=== PATIENT | female | born 1955 | race Caucasian/White ===

== ENCOUNTER 2016-11-29 23:26 | Inpatient (IN) | payer OTHER ==
[2016-11-29] MEDS ORDERED: ONDANSETRON HCL INJ/PF 4 MG/2 ML SDV IV ONE (23:57)
[2016-11-29] MEDS ORDERED: NORMAL SALINE 1000 ML 1,000 ML IV ONE (23:57)
[2016-11-30] MEDS ORDERED: NORMAL SALINE 1000 ML 1,000 ML IV PRN (00:11)
[2016-11-30 00:36] LABS: ABSOLUTE LYMPHOCYTES (AUTO) 1.1 10^3/uL (0.5-4.7); ABSOLUTE NEUT (AUTO) 6.8 10^3/uL (1.7-8.2); BASOPHILS % (AUTO) 0.4 % (0-2); HEMATOCRIT 47.2 % (36.0-47.0); HGB HCT DIFFERENCE -2.2; LYMPHOCYTES % (AUTO) 11.9 % (13-45); MEAN CORPUSCULAR HEMOGLOBIN 28.7 pg (27.0-33.4); MEAN CORPUSCULAR HGB CONC 31.8 g/dL (32.0-36.0); MEAN CORPUSCULAR VOLUME 90 fl (80-97); MONOCYTES % (AUTO) 11.3 % (3-13); RED BLOOD COUNT 5.23 10^6/uL (3.72-5.28); RED CELL DISTRIBUTION WIDTH 13.4 % (11.5-14.0); SEGMENTED NEUTROPHILS % (AUTO) 76.4 % (42-78)
[2016-11-30 00:43] LABS: ALANINE AMINOTRANSFERASE 33 U/L (9-52); ALBUMIN 4.4 g/dL (3.5-5.0); ALKALINE PHOSPHATASE 176 U/L (38-126); ASPARTATE AMINO TRANSFERASE 20 U/L (14-36); BILIRUBIN,DIRECT 0.6 mg/dL (0.0-0.4); BILIRUBIN,TOTAL 0.8 mg/dL (0.2-1.3); BLOOD UREA NITROGEN 57 mg/dL (7-20); CALCIUM 10.4 mg/dL (8.4-10.2); CARBON DIOXIDE 29 mmol/L (22-30); CHLORIDE 83 mmol/L (98-107); CREATININE RESULT 1.28 mg/dL (0.52-1.25); TOTAL PROTEIN 8.9 g/dL (6.3-8.2)
[2016-11-30 00:51] LABS: POTASSIUM 4.5 mmol/L (3.6-5.0); SODIUM 134.4 mmol/L (137-145)
[2016-11-30 00:57] LABS: ANION GAP 22 (5-19)
[2016-11-30 01:06] LABS: GLUCOSE 641 mg/dL (75-110)
[2016-11-30] MEDS ORDERED: GLUCAGON,HUMAN RECOMB 1 MG INJ IM PRN ×3 (01:07→07:43)
[2016-11-30] MEDS ORDERED: DEXTROSE 40% GEL 15 GM TUBE PO PRN ×6 (01:07→07:43)
[2016-11-30] MEDS ORDERED: DEXTROSE 50%-WATER 25 GM/50 ML DISP.SYRIN IV PRN ×6 (01:07→07:43)
[2016-11-30] MEDS ORDERED: NORMAL SALINE 100 ML with INSULIN REGULAR, HUMAN 100 UNIT IV PRN ×2 (01:07)
[2016-11-30] MEDS ORDERED: NORMAL SALINE 1000 ML 1,000 ML IV ONE (01:34)
[2016-11-30] MEDS ORDERED: INSULIN REG, HUMAN 100 UNIT/ML 3 ML VIAL (PYX) ONE (01:34)
[2016-11-30] MEDS ORDERED: ACETAMINOPHEN 325 MG TABLET PO PRN (01:37)
[2016-11-30] MEDS ORDERED: IPRATROPIUM/ALBUTEROL 0.5-2.5 MG/3 ML AMPUL NEB PRN (01:37)
--- NOTE | 2016-11-30 01:39 | ER Document Report ---
ED General - General Chief Complaint: Nausea/Vomiting/Diarrhea Stated Complaint: VOMITING FOR THREE DAYS Time Seen by Provider: 11/30/16 00:11 Notes: There is a 61-year-old female presents with complaint of vomiting since Tuesday. No chest pain. No abdominal pain. No diarrhea. No travel outside the country. She is a diabetic. She is on metformin but has been down. No recent fevers. No other complaints at this time. - Related Data Allergies/Adverse Reactions: oxycodone Adverse Reaction (Verified 11/29/16 23:57) Hives Past Medical History - Social History Smoking Status: Unknown if Ever Smoked Chew tobacco use (# tins/day): No Frequency of alcohol use: None Drug Abuse: None Family History: Reviewed & Not Pertinent Endocrine Medical History: Reports: Hx Diabetes Mellitus Type 2 Renal/ Medical History: Denies: Hx Peritoneal Dialysis Past Surgical History: Reports: Hx Cholecystectomy - Immunizations Hx Diphtheria, Pertussis, Tetanus Vaccination: No Review of Systems - Review of Systems Notes: My Normal Review Basic REVIEW OF SYSTEMS: CONSTITUTIONAL : Denies fever, chills, or sweats. Denies recent illness. EENT: Denies eye, ear, throat, or mouth pain or symptoms. Denies nasal or sinus congestion. CARDIOVASCULAR: Denies chest pain. RESPIRATORY: Denies cough, cold, or chest congestion. Denies shortness of breath, difficulty breathing, or wheezing. GASTROINTESTINAL: Denies abdominal pain. vomiting. GENITOURINARY: Denies difficulty urinating, painful urination, burning, frequency, or blood in urine. MUSCULOSKELETAL: Denies neck or back pain or joint pain or swelling. SKIN: Denies rash or skin lesions. NEUROLOGICAL: Denies altered mental status or loss of consciousness. Denies headache. Denies weakness or paralysis or loss of use of either side. Denies problems with gait or speech. Denies sensory or motor loss. ALL OTHER SYSTEMS REVIEWED AND NEGATIVE. Physical Exam - Vital signs Vitals: Temp Pulse Resp BP Pulse Ox 97.8 F 126 H 14 90/59 L 97 11/29/16 23:54 11/29/16 23:54 11/29/16 23:54 11/29/16 23:54 11/29/16 23:54 - Notes Notes: General Appearance: Well nourished, alert, cooperative, no acute distress, no obvious discomfort. Vitals: reviewed, See vital signs table. Head: no swelling or tenderness to the head Eyes: PERRL, EOMI, Conjuctiva clear Mouth: dry mucous membranes Neck: Supple, no neck tenderness, No thyromegaly Lungs: No wheezing, No rales, No rhonci, No accessory muscle use, good air exchange bilaterally. Heart: tachycardicl rate, Regular rythm, No murmur, no rub Abdomen: Normal BS, soft, No rigidity, No abdominal tenderness, No guarding, no rebound, no abdominal masses, no organomegaly Extremities: strength 5/5 in all extremities, good pulses in all extremities, no swelling or tenderness in the extremities, no edema. Skin: warm, dry, appropriate color, no rash Neuro: speech clear, oriented x 3, normal affect, responds appropriately to questions. Course - Vital Signs Vital signs: Temp Pulse Resp BP Pulse Ox 97.8 F 126 H 16 110/60 99 11/29/16 23:54 11/29/16 23:54 11/30/16 04:57 11/30/16 07:01 11/30/16 07:01 - Laboratory Result Diagrams: 11/30/16 06:12 11/30/16 06:12 Laboratory results interpreted by me: 11/30/16 11/30/16 11/30/16 00:13 00:13 00:13 Hct 47.2 H MCHC 31.8 L Lymphocytes % 11.9 L Sodium 134.4 L Chloride 83 L Anion Gap 22 H BUN 57 H Creatinine 1.28 H Est GFR ( Amer) 52 L Est GFR (Non-Af Amer) 43 L Glucose 641 H* Calcium 10.4 H Magnesium 2.4 H Direct Bilirubin 0.6 H Alkaline Phosphatase 176 H Total Protein 8.9 H - EKG Interpretation by Me Additional EKG results interpreted by me: 11/30/16 01:43 Is reviewed and interpreted by me. EKG shows sinus tachycardia with rate of [address] segment elevation or depression. No ischemic T-wave inversions. ND interval, QRS duration, QTc intervals are within normal range. No old EKG available for comparison. - Transfer of Care Notes: 11/30/16 07:21 Patient's hypotension did improve with IV fluids. She is hyperglycemic and does have a slight gap. She has not very acidotic according to her chemistry panel. Due to her severe dehydration, hyperglycemia, and initial hypotension when she arrived I think it is appropriate to the patient for further rehydration and to get her blood sugars under control and to make sure her vomiting has not returned. Patient is still a bit tachycardic. Initially her heart rate was in the 130s. Now heart rate is in the 110s. I did discuss the case with hospitalist and he agrees to admit the patient. Dictation of this chart was performed using voice recognition software; therefore, there may be some unintended grammatical errors. Discharge - Discharge Clinical Impression: Hyperglycemia, Dehydration Vomiting Qualifiers: Vomiting type: unspecified Vomiting Intractability: unspecified Nausea presence : with nausea Qualified Code(s): R11.2 - Nausea with vomiting, unspecified Disposition: ADMITTED INPATIENT Admitting Provider: Hospitalist Unit Admitted: [facility]
[2016-11-30] MEDS ORDERED: NORMAL SALINE 1000 ML 1,000 ML IV SCH (01:45)
[2016-11-30 02:22] LABS: ANION GAP 18 (5-19); BLOOD UREA NITROGEN 56 mg/dL (7-20); CALCIUM 9.2 mg/dL (8.4-10.2); CARBON DIOXIDE 29 mmol/L (22-30); CHLORIDE 91 mmol/L (98-107); CREATINE KINASE 30 U/L (30-135); CREATININE RESULT 1.08 mg/dL (0.52-1.25); POTASSIUM 4.3 mmol/L (3.6-5.0); SODIUM 138.4 mmol/L (137-145)
[2016-11-30 02:34] LABS: GLUCOSE 588 mg/dL (75-110)
[2016-11-30 02:39] LABS: TROPONIN I < 0.012 ng/mL
[2016-11-30] MEDS ORDERED: ONDANSETRON HCL INJ/PF 4 MG/2 ML SDV IV ONE (03:52)
--- NOTE | 2016-11-30 04:59 | PDOC H&P ---
History of Present Illness Admission Date/PCP: 11/30/16 01:37 Patient complains of: Nausea and vomiting History of Present Illness: TERRANCE KLEIN is a 61 year old female a past medical history of insulin-dependent diabetes who is had several weeks without insulin use and over the last few days has had excessive thirst, urination, uncontrolled hyperglycemia nausea and vomiting over the last 12 hours prompting him to seek evaluation emergency room where she is found to be in diabetic ketoacidosis. She started on IV fluids IV insulin and referred to the hospitalist for admission. She denies chest pain shortness of breath or palpitations. Past Medical History Endocrine Medical History: Reports: Diabetes Mellitus Type 2 Past Surgical History Past Surgical History: Reports: Cholecystectomy Social History Information Source: Patient Smoking Status: Former Smoker Frequency of Alcohol Use: None Drugs: None Family History Family History: DM Parental Family History Reviewed: Yes Children Family History Reviewed: Yes Sibling(s) Family History Reviewed.: Yes Medication/Allergy Allergies/Adverse Reactions: oxycodone Adverse Reaction (Verified 11/29/16 23:57) Bryson Review of Systems Constitutional: PRESENT: as per HPI, fatigue, weakness. ABSENT: chills, fever(s ), headache(s), night sweats Eyes: ABSENT: visual disturbances Ears: ABSENT: hearing changes Cardiovascular: ABSENT: chest pain, dyspnea on exertion, edema, orthropnea, palpitations Respiratory: ABSENT: cough, hemoptysis Gastrointestinal: PRESENT: abdominal pain, bloating, heartburn, nausea, vomiting. ABSENT: coffee ground emesis, constipation, diarrhea, dysphagia, hematemesis, hematochezia, melena Genitourinary: PRESENT: as per HPI. ABSENT: difficulty urinating, dysuria, hematuria Musculoskeletal: ABSENT: joint swelling Integumentary: ABSENT: rash, wounds Neurological: ABSENT: abnormal gait, abnormal speech, confusion, dizziness, focal weakness, syncope Psychiatric: ABSENT: anxiety, depression, homidical ideation, suicidal ideation Endocrine: PRESENT: polydipsia, polyphagia, polyuria. ABSENT: flushing, heat intolerance, menstrual abnormalities Hematologic/Lymphatic: ABSENT: easy bleeding, easy bruising Physical Exam Vital Signs: Temp Pulse Resp BP Pulse Ox 97.8 F 126 H 14 96/60 L 95 11/29/16 23:54 11/29/16 23:54 11/29/16 23:54 11/30/16 04:01 11/30/16 04:01 General appearance: PRESENT: cooperative, mild distress, well-developed, well- nourished Head exam: PRESENT: atraumatic, normocephalic Eye exam: PRESENT: conjunctiva pink, EOMI, PERRLA. ABSENT: scleral icterus Ear exam: PRESENT: normal external ear exam Mouth exam: PRESENT: dry mucosa, tongue midline Neck exam: ABSENT: carotid bruit, JVD, lymphadenopathy, thyromegaly Respiratory exam: PRESENT: clear to auscultation henri. ABSENT: rales, rhonchi, wheezes Cardiovascular exam: PRESENT: RRR. ABSENT: diastolic murmur, rubs, systolic murmur Pulses: PRESENT: normal dorsalis pedis pul Vascular exam: PRESENT: normal capillary refill GI/Abdominal exam: PRESENT: normal bowel sounds, soft. ABSENT: distended, guarding, mass, organolmegaly, rebound, tenderness Rectal exam: PRESENT: deferred Extremities exam: PRESENT: full ROM. ABSENT: calf tenderness, clubbing, pedal edema Neurological exam: PRESENT: alert, awake, oriented to person, oriented to place , oriented to time, oriented to situation, CN II-XII grossly intact. ABSENT: motor sensory deficit Psychiatric exam: PRESENT: appropriate affect, normal mood. ABSENT: homicidal ideation, suicidal ideation Skin exam: PRESENT: dry, intact, warm. ABSENT: cyanosis, rash Results Laboratory Results: 11/30/16 02:01 11/30/16 02:01 Sodium 138.4 Potassium 4.3 Chloride 91 L Carbon Dioxide 29 Anion Gap 18 BUN 56 H Creatinine 1.08 Est GFR ( Amer) > 60 Est GFR (Non-Af Amer) 52 L Glucose 588 H* Calcium 9.2 11/30/16 11/30/16 02:01 02:01 Creatine Kinase 30 CK-MB (CK-2) 0.70 Troponin I < 0.012 Assessment & Plan - Diagnosis (1) DKA (diabetic ketoacidoses) Qualifiers: Diabetes mellitus type: type 1 Diabetes mellitus complication detail: without coma Qualified Code(s): E10.10 - Type 1 diabetes mellitus with ketoacidosis without coma Is this a current diagnosis for this admission?: YesPlan: Patient admits insulin noncompliance, continue IV insulin, IV fluid and electrolyte repletion follow-up chemistry every 6 hours followed by education (2) Dehydration Is this a current diagnosis for this admission?: YesPlan: Secondary to diabetic ketoacidosis, IV fluid repletion reevaluation of chemistry (3) Hyperglycemia Is this a current diagnosis for this admission?: YesPlan: Secondary to #1 IV insulin, IV fluids reevaluation of glucose every hour for titration of insulin. (4) Vomiting Qualifiers: Vomiting type: unspecified Vomiting Intractability: unspecified Nausea presence: with nausea Qualified Code(s): R11.2 - Nausea with vomiting , unspecified Plan: Secondary to #1 symptomatic management and correction of the underlying cause. - Time Time Spent: 30 to 50 Minutes - Inpatient Certification Medical Necessity: Need Close Monitoring Due to Risk of Patient Decompensation
[2016-11-30] MEDS: HEPARIN SOD (PORCINE) 5,000 UNIT/ML 1 ML SYRINGE SUBCUT SCH ×3 (05:57→21:39)
[2016-11-30 06:21] LABS: ABSOLUTE BASOPHILS # (AUTO) 0.1 10^3/uL (0.0-0.2); ABSOLUTE LYMPHOCYTES (AUTO) 1.6 10^3/uL (0.5-4.7); ABSOLUTE MONOCYTES (AUTO) 0.7 10^3/uL (0.1-1.4); ABSOLUTE NEUT (AUTO) 4.8 10^3/uL (1.7-8.2); BASOPHILS % (AUTO) 0.7 % (0-2); EOSINOPHILS % (AUTO) 0.1 % (0-6); HEMATOCRIT 40.8 % (36.0-47.0); HEMOGLOBIN 13.5 g/dL (12.0-15.5); HGB HCT DIFFERENCE -0.3; LYMPHOCYTES % (AUTO) 22.7 % (13-45); MEAN CORPUSCULAR HEMOGLOBIN 28.9 pg (27.0-33.4); MEAN CORPUSCULAR HGB CONC 33.1 g/dL (32.0-36.0); MEAN CORPUSCULAR VOLUME 87 fl (80-97); MONOCYTES % (AUTO) 9.6 % (3-13); RED BLOOD COUNT 4.67 10^6/uL (3.72-5.28); RED CELL DISTRIBUTION WIDTH 13.5 % (11.5-14.0); SEGMENTED NEUTROPHILS % (AUTO) 66.9 % (42-78); WHITE BLOOD COUNT 7.2 10^3/uL (4.0-10.5)
[2016-11-30 06:39] LABS: URINE BARBITURATES SCREEN NEGATIVE; URINE METHADONE SCREEN NEGATIVE; URINE OPIATES LOW NEGATIVE; URINE PHENCYCLIDINE SCREEN NEGATIVE
[2016-11-30 06:44] LABS: ANION GAP 12 (5-19); BLOOD UREA NITROGEN 54 mg/dL (7-20); CALCIUM 9.2 mg/dL (8.4-10.2); CARBON DIOXIDE 30 mmol/L (22-30); CHLORIDE 98 mmol/L (98-107); CREATININE RESULT 0.93 mg/dL (0.52-1.25); POTASSIUM 3.9 mmol/L (3.6-5.0); SODIUM 139.8 mmol/L (137-145)
[2016-11-30 07:31] LABS: GLUCOSE 410 mg/dL (75-110)
[2016-11-30] MEDS ORDERED: INSULIN LISPRO 100 UNIT/ML 3 ML VIAL SUBCUT PRN (07:43)
[2016-11-30 08:17] LABS: CREATINE KINASE MB 0.55 ng/mL (<4.55)
[2016-11-30 08:19] LABS: TROPONIN I < 0.012 ng/mL
[2016-11-30 09:17] LABS: APPEARANCE,URINE SLIGHTLY-CLOUDY; BILIRUBIN,URINE NEGATIVE (NEGATIVE); GLUCOSE, URINE >=500 mg/dL (NEGATIVE); KETONES,URINE TRACE mg/dL (NEGATIVE); LEUKOCYTE ESTERASE,URINE SMALL (NEGATIVE); NITRITE,URINE NEGATIVE (NEGATIVE); PROTEIN,URINE NEGATIVE (NEGATIVE); URINE SPECIFIC GRAVITY 1.027; UROBILINOGEN,URINE NEGATIVE mg/dL (<2.0)
[2016-11-30] MEDS ORDERED: INSULIN, REGULAR 100 UNIT/100 ML NORMAL SALINE IV PRN ×2 (09:37)
[2016-11-30] MEDS ORDERED: INSULIN GLARGINE,HUM.REC.ANLOG 300 UNIT/3 ML INSULN.PEN SUBCUT SCH (10:00)
[2016-11-30] MEDS: NORMAL SALINE 1000 ML 1,000 ML IV PRN ×2 (10:25→22:36)
--- NOTE | 2016-11-30 11:04 | EKG REPORT ---
SEVERITY:- BORDERLINE ECG - SINUS TACHYCARDIA BORDERLINE T WAVE ABNORMALITIES : Confirmed by: Mike Jerome 30-Nov-2016 11:03:27
[2016-11-30] MEDS ORDERED: INSULIN GLARGINE,HUM.REC.ANLOG 300 UNIT/3 ML INSULN.PEN SUBCUT ONE (12:00)
[2016-11-30] MEDS: ONDANSETRON HCL INJ/PF 4 MG/2 ML SDV IV PRN ×2 (12:05→19:46)
[2016-11-30] MEDS ORDERED: PROMETHAZINE HCL INJ 25 MG/1 ML VIAL IV PRN (13:44)
--- NOTE | 2016-11-30 13:53 | PDOC PROGRESS REPORT ---
Subjective Progress Note for:: 11/30/16 Subjective:: Patient states that she has had nausea and vomiting for the past 5 days. Last bowel movement 5 days ago. She denies chest pain, abdominal pain, back pain, dysuria, fever, chills, headache. Physical Exam Vital Signs: Temp Pulse Resp BP Pulse Ox 98.4 F 117 H 16 108/67 98 11/30/16 09:46 11/30/16 09:46 11/30/16 09:46 11/30/16 09:46 11/30/16 09:46 Intake & Output 11/29/16 11/30/16 12/01/16 06:59 06:59 06:59 Intake Total 257 Balance 257 Weight 77.8 kg GENERAL: No acute distress HEENT: Conjunctiva clear, nonicteric, moist mucous membranes, no JVD, midline trachea RESPIRATORY: Clear to auscultation bilaterally, no wheezes, no rhonchi CARDIAC: Regular rate and rhythm, no murmurs/gallops/rubs ABDOMEN: Soft, nondistended, nontender, positive bowel sounds, no rebound, no guarding EXTREMETIES: No edema, cyanosis, clubbing NEUROLOGIC: Alert, oriented to person/place/time, CN's grossly intact, no focal deficits SKIN: No rash, wounds PSYCH: Normal mood, normal affect Results Laboratory Results: 11/30/16 06:12 11/30/16 06:12 11/30/16 11/30/16 11/30/16 02:01 06:00 06:12 WBC RBC Hgb Hct MCV MCH MCHC RDW Plt Count Seg Neutrophils % Lymphocytes % Monocytes % Eosinophils % Basophils % Absolute Neutrophils Absolute Lymphocytes Absolute Monocytes Absolute Eosinophils Absolute Basophils Sodium 138.4 139.8 Potassium 4.3 3.9 Chloride 91 L 98 Carbon Dioxide 29 30 Anion Gap 18 12 BUN 56 H 54 H Creatinine 1.08 0.93 Est GFR ( Amer) > 60 > 60 Est GFR (Non-Af Amer) 52 L > 60 Glucose 588 H* 410 H* Calcium 9.2 9.2 Urine Color YELLOW Urine Appearance SLIGHTLY-CLOUDY Urine pH 5.0 Ur Specific [place] 1.027 Urine Protein NEGATIVE Urine Glucose (UA) >=500 H Urine Ketones TRACE H Urine Blood MODERATE H Urine Nitrite NEGATIVE Ur Leukocyte Esterase SMALL H Urine WBC (Auto) 25 Urine RBC (Auto) 3 11/30/16 06:12 WBC 7.2 RBC 4.67 Hgb 13.5 Hct 40.8 MCV 87 MCH 28.9 MCHC 33.1 RDW 13.5 Plt Count 191 Seg Neutrophils % 66.9 Lymphocytes % 22.7 Monocytes % 9.6 Eosinophils % 0.1 Basophils % 0.7 Absolute Neutrophils 4.8 Absolute Lymphocytes 1.6 Absolute Monocytes 0.7 Absolute Eosinophils 0.0 Absolute Basophils 0.1 Sodium Potassium Chloride Carbon Dioxide Anion Gap BUN Creatinine Est GFR ( Amer) Est GFR (Non-Af Amer) Glucose Calcium Urine Color Urine Appearance Urine pH Ur Specific [place] Urine Protein Urine Glucose (UA) Urine Ketones Urine Blood Urine Nitrite Ur Leukocyte Esterase Urine WBC (Auto) Urine RBC (Auto) 11/30/16 11/30/16 11/30/16 02:01 02:01 07:33 Creatine Kinase 30 32 CK-MB (CK-2) 0.70 Troponin I < 0.012 11/30/16 07:33 Creatine Kinase CK-MB (CK-2) 0.55 Troponin I < 0.012 Assessment & Plan - Diagnosis (1) Diabetes Qualifiers: Diabetes mellitus type: type 2 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 Check hemoglobin A1c. Blood glucose now under better control. Discontinue insulin drip. Start Lantus 20 units subcu daily. (2) Urinary tract infection Is this a current diagnosis for this admission?: YesPlan: IV Rocephin pending further culture. (3) Hyperglycemia Is this a current diagnosis for this admission?: Yes (4) Vomiting Qualifiers: Vomiting type: unspecified Vomiting Intractability: unspecified Nausea presence: with nausea Qualified Code(s): R11.2 - Nausea with vomiting , unspecified Is this a current diagnosis for this admission?: YesPlan: Possibly secondary to urinary tract infection and hyperglycemia. Check CT scan abdomen/pelvis. Cardiac enzymes negative 2. - Time Time Spent with patient: 35 or more minutes
[2016-11-30 14:41] LABS: CREATINE KINASE MB 0.66 ng/mL (<4.55)
[2016-11-30 14:45] LABS: TROPONIN I < 0.012 ng/mL
--- NOTE | 2016-11-30 15:09 | RADIOLOGY REPORT (SQ) ---
EXAM DESCRIPTION: CT ABD/PELVIS WITH IV ONLY COMPLETED DATE/TIME: 11/30/2016 2:58 pm REASON FOR STUDY: N/V, UTI COMPARISON: None. TECHNIQUE: CT scan of the abdomen and pelvis performed using helical scanning technique with dynamic intravenous contrast injection. No oral contrast. Images reviewed with lung, soft tissue, and bone windows. Reconstructed coronal and sagittal MPR images reviewed. Delayed images for evaluation of the urinary system also acquired. All images stored on PACS. All CT scanners at this facility use dose modulation, iterative reconstruction, and/or weight based d osing when appropriate to reduce radiation dose to as low as reasonably achievable (ALARA). [facility]: Dose Right [facility]: CareDose [facility]: Dose Right [facility]: Teradose 4D [facility]: ReCoTech CONTRAST TYPE AND DOSE: contrast/concentration: Isovue 370.00 mg/ml; Total Contrast Delivered: 88.0 ml; Total Saline Delivered: 43.1 ml RENAL FUNCTION: BUN 54 creatinine 0.93. RADIATION DOSE: Up-to-date CT equipment and radiation dose reduction techniques were employed. CTDIv ol: 10.7 - 12.6 mGy. DLP: 1269 mGy-cm.. LIMITATIONS: None. FINDINGS: LOWER CHEST: No significant findings. No nodules or infiltrates. LIVER: Normal size. No masses or dilated ducts. SPLEEN: Normal size. No focal lesions. PANCREAS: No masses. No significant calcifications. No adjacent inflammation or peripancreatic fluid collections. Pancreatic duct not dilated. GALLBLADDER: Surgically absent. ADRENAL GLANDS: No significant masses or asymmetry. RIGHT KIDNEY AND URETER: No solid masses. No significant calcifications. No hydronephrosis or hyd roureter. LEFT KIDNEY AND URETER: No solid masses. No significant calcifications. No hydronephrosis or hydr oureter. AORTA AND VESSELS: No aneurysm. No dissection. Renal arteries, SMA, celiac without stenosis. RETROPERITONEUM: No retroperitoneal adenopathy, hemorrhage or masses. BOWEL AND PERITONEAL CAVITY: Diffuse dilation of the small bowel. Transition point at the ileocecal region. No masses or inflammatory changes. No free fluid or peritoneal masses. APPENDIX: Surgically absent. PELVIS: No mass or free fluid. Normal bladder. ABDOMINAL WALL: No masses. Umbilical hernia containing fat only. BONES: No significant or acute findings. OTHER: No other significant finding. IMPRESSION: 1. DIFFUSE SMALL BOWEL DILATION CONSISTENT WITH DISTAL SMALL-BOWEL OBSTRUCTION. NO OBVIOUS ETIOLOGY BUT THE POINT OF OBSTRUCTION IS DISTALLY AT THE ILEOCECAL REGION. POSSIBLY DUE TO ADHESIONS FROM SOPHIE OR SURGERY. 2. UMBILICAL HERNIA CONTAINING FAT ONLY. NO INVOLVEMENT OF BOWEL. 3. NO OTHER SIGNIFICANT FINDING. TECHNICAL DOCUMENTATION: JOB ID: [id number] Quality ID # [id number]: Final reports with documentation of one or more dose reduction techniques (e.g., Au tomated exposure control, adjustment of the mA and/or kV according to patient size, use of iterative reconstruction technique) 2010 [employer]- All Rights Reserved
[2016-11-30] MEDS: CEFTRIAXONE 1 GM/D5W RTU 1 GM/50 ML RTUPB IV SCH (15:44)
[2016-11-30] MEDS: INSULIN LISPRO 100 UNIT/ML 3 ML VIAL SUBCUT PRN ×2 (18:15→22:42)
--- NOTE | 2016-11-30 19:54 | CONSULTATION REPORT E ---
Consultation Report NAME: TERRANCE KLEIN : 1955 AGE: 61Y DATE: 11/30/2016 419 A TO: LETICIA SWEENEY M.D. FROM: TEMO RAND M.D. Requesting Physician REASON FOR CONSULTATION: Patient with bowel obstruction noted on CAT scan of the abdomen. HISTORY OF PRESENT ILLNESS: This is a 61-year-old female admitted for DKA and has been vomiting for the past 12 hours. A CAT scan of the abdomen was ordered and noted to have small bowel obstruction. The patient's last bowel movement was about 4 days ago and she claims she passed flatus this morning. She denies any abdominal pains. Her past history revealed that she had an open cholecystectomy and appendectomy at the same time in the mid 1980s. She also had a tubal ligation about 30 years ago. She is an insulin-dependent diabetes but apparently has not been taking her medications in the past several days. SOCIAL HISTORY: Denies smoking, drinking or alcohol use. FAMILY HISTORY: Positive for diabetes mellitus. ALLERGIES: OXYCODONE. REVIEW OF SYSTEMS: Constitutional: Reports fatigue and weakness. EENT: No visual or hearing problems. Cardiovascular: Has some cough but no hemoptysis. GI: Denies abdominal pains but admits to having some bloating and heartburn as well as nausea and vomiting. : Denies any dysuria. Denies any swelling or rash on her skin. Neurologic: No abnormal gait or speech. Psychiatric: No anxiety or depression. Endocrine: Positive polydipsia, polyphagia and polyuria. Hematologic: No easy bruisability. PHYSICAL EXAMINATION: VITAL SIGNS: Temperature 97.8, pulse 126, respiratory rate 14, BP 96/60 and pulse oximetry is 95 on room air. GENERAL APPEARANCE: The patient is alert, mild distress. Well developed and well nourished. HEENT: PERRLA. No adenopathy. Neck is supple. Mouth exam: Dry mucosa; tongue midline. RESPIRATORY: Lungs are clear to auscultation. PULSES: Palpable pulses in ankles. ABDOMEN: Soft, nontender. She has an incarcerated umbilical hernia just above the umbilicus that is nontender. CAT scan showed this is filled with fat but no bowel. This is also nontender. The whole abdomen is nontender. EXTREMITIES: Full range of motion. NEUROLOGIC: The patient is alert and oriented x3. PSYCHIATRIC: Appropriate affect and normal mood. SKIN: Dry and warm. LABORATORY DATA: Her blood sugar was at one time 800 and went down to 500 and now it was 193 on insulin drip. Urinalysis, however, showed urine leukocyte esterase is small and moderate blood. Her urine nitrite is negative. IMPRESSION: 1. DKA. 2. Small bowel obstruction on CAT scan. 3. Possible UTI. PLAN: 1. To keep her n.p.o. 2. Increase her IV fluids to at least 150 mL/h. 3. We will also repeat her white count. Her white count remains normal at this time. DICTATING PHYSICIAN: LETICIA SWEENEY M.D. [id number] PHY#: [id number] ID: [id number] JOB#: [id number] ACCT: [id number] cc:LETICIA SWEENEY M.D. >
[2016-11-30] MEDS ORDERED: PROMETHAZINE HCL INJ 50 MG/1 ML VIAL ONE (22:22)
[2016-12-01 05:02] LABS: ABSOLUTE LYMPHOCYTES (AUTO) 1.2 10^3/uL (0.5-4.7); ABSOLUTE NEUT (AUTO) 6.7 10^3/uL (1.7-8.2); BASOPHILS % (AUTO) 0.3 % (0-2); HEMATOCRIT 41.2 % (36.0-47.0); HEMOGLOBIN 13.4 g/dL (12.0-15.5); LYMPHOCYTES % (AUTO) 13.4 % (13-45); MEAN CORPUSCULAR HEMOGLOBIN 28.8 pg (27.0-33.4); MEAN CORPUSCULAR HGB CONC 32.6 g/dL (32.0-36.0); MEAN CORPUSCULAR VOLUME 88 fl (80-97); MONOCYTES % (AUTO) 11.7 % (3-13); RED BLOOD COUNT 4.67 10^6/uL (3.72-5.28); RED CELL DISTRIBUTION WIDTH 13.3 % (11.5-14.0); SEGMENTED NEUTROPHILS % (AUTO) 74.6 % (42-78); WHITE BLOOD COUNT 8.9 10^3/uL (4.0-10.5)
[2016-12-01 05:22] LABS: ANION GAP 16 (5-19); BLOOD UREA NITROGEN 42 mg/dL (7-20); CALCIUM 9.2 mg/dL (8.4-10.2); CARBON DIOXIDE 30 mmol/L (22-30); CHLORIDE 97 mmol/L (98-107); CREATININE RESULT 0.87 mg/dL (0.52-1.25); GLUCOSE 279 mg/dL (75-110); POTASSIUM 3.4 mmol/L (3.6-5.0); SODIUM 142.8 mmol/L (137-145)
[2016-12-01] MEDS: HEPARIN SOD (PORCINE) 5,000 UNIT/ML 1 ML SYRINGE SUBCUT SCH ×3 (06:40→22:30)
[2016-12-01] MEDS: NORMAL SALINE 1000 ML 1,000 ML IV PRN (06:41)
[2016-12-01] MEDS ORDERED: POTASSI CL 20 MEQ/50 ML RIDER 20 MEQ/50 ML RTUPB IV ONE (08:00)
--- NOTE | 2016-12-01 08:07 | RADIOLOGY REPORT (SQ) ---
EXAM DESCRIPTION: ABDOMEN 2 VIEWS COMPLETED DATE/TIME: 12/01/2016 7:40 am REASON FOR STUDY: follow up of SBO on CT scan COMPARISON: CT abdomen and pelvis 11/30/2016 NUMBER OF VIEWS: Two views. TECHNIQUE: Supine and erect/decubitus radiographic images of the abdomen acquired. LIMITATIONS: None. FINDINGS: FREE AIR: None. LUNG BASES: Clear. BOWEL GAS PATTERN: Multiple dilated small bowel loops with air-fluid levels. CALCIFICATIONS: No suspicious calcifications. SOFT TISSUES: No gross mass or suggestion of organomegaly. HARDWARE: Surgical clips in the right upper quadrant. BONES: Degenerative changes in the spine. OTHER: Contrast excretion in the urinary bladder from the recent CT abdomen and pelvis. IMPRESSION: Multiple dilated small bowel loops with air-fluid levels, remain worrisome for small bow el obstruction. TECHNICAL DOCUMENTATION: JOB ID: [id number] [id number] 2010 [employer]- All Rights Reserved
[2016-12-01] MEDS ORDERED: LORAZEPAM INJ 2 MG/1 ML VIAL IV ONE (09:30)
[2016-12-01] MEDS: INSULIN LISPRO 100 UNIT/ML 3 ML VIAL SUBCUT PRN (09:46)
[2016-12-01] MEDS: INSULIN GLARGINE,HUM.REC.ANLOG 300 UNIT/3 ML INSULN.PEN SUBCUT SCH (09:46)
--- NOTE | 2016-12-01 11:36 | RADIOLOGY REPORT (SQ) ---
EXAM DESCRIPTION: CHEST SINGLE VIEW COMPLETED DATE/TIME: 12/01/2016 11:11 am REASON FOR STUDY: NGT PLACEMENT COMPARISON: None. EXAM PARAMETERS: NUMBER OF VIEWS: One view. TECHNIQUE: Single frontal radiographic view of the chest acquired. RADIATION DOSE: NA LIMITATIONS: None. FINDINGS: LUNGS AND PLEURA: No focal opacities in the visualized portions of the lungs. MEDIASTINUM AND HILAR STRUCTURES: No masses. Contour normal. HEART AND VASCULAR STRUCTURES: Heart normal in size. Normal vasculature. BONES: No acute findings. HARDWARE: Nasogastric tube noted with tip in side hole projecting over the left upper quadrant region of the stomach. Surgical clips from cholecystectomy noted OTHER: Dilated loops of small bowel noted mid abdomen. IMPRESSION: Nasogastric tube appears to be in appropriate position. TECHNICAL DOCUMENTATION: JOB ID: [id number]
[2016-12-01] MEDS: CEFTRIAXONE 1 GM/D5W RTU 1 GM/50 ML RTUPB IV SCH (14:27)
--- NOTE | 2016-12-01 16:36 | PDOC PROGRESS REPORT ---
Subjective Progress Note for:: 12/01/16 Subjective:: Patient states that she has had nausea and vomiting for the past 5 days. Last bowel movement 5 days ago. She denies chest pain, abdominal pain, back pain, dysuria, fever, chills, headache. Physical Exam Vital Signs: Temp Pulse Resp BP Pulse Ox 98.2 F 123 H 16 133/68 H 98 12/01/16 11:58 12/01/16 11:58 12/01/16 11:58 12/01/16 11:58 12/01/16 11:58 Intake & Output 11/30/16 12/01/16 12/02/16 06:59 06:59 06:59 Intake Total 257 650 Output Total 755 1800 Balance -498 -1150 Weight 76.2 kg GENERAL: No acute distress HEENT: Conjunctiva clear, nonicteric, moist mucous membranes, no JVD, midline trachea RESPIRATORY: Clear to auscultation bilaterally, no wheezes, no rhonchi CARDIAC: Regular rate and rhythm, no murmurs/gallops/rubs ABDOMEN: Soft, nondistended, nontender, positive bowel sounds, no rebound, no guarding EXTREMETIES: No edema, cyanosis, clubbing NEUROLOGIC: Alert, oriented to person/place/time, CN's grossly intact, no focal deficits SKIN: No rash, wounds PSYCH: Normal mood, normal affect Results Laboratory Results: 12/01/16 04:37 12/01/16 04:37 12/01/16 12/01/16 04:37 04:37 WBC 8.9 RBC 4.67 Hgb 13.4 Hct 41.2 MCV 88 MCH 28.8 MCHC 32.6 RDW 13.3 Plt Count 199 Seg Neutrophils % 74.6 Lymphocytes % 13.4 Monocytes % 11.7 Eosinophils % 0.0 Basophils % 0.3 Absolute Neutrophils 6.7 Absolute Lymphocytes 1.2 Absolute Monocytes 1.0 Absolute Eosinophils 0.0 Absolute Basophils 0.0 Sodium 142.8 Potassium 3.4 L Chloride 97 L Carbon Dioxide 30 Anion Gap 16 BUN 42 H Creatinine 0.87 Est GFR ( Amer) > 60 Est GFR (Non-Af Amer) > 60 Glucose 279 H Calcium 9.2 11/30/16 06:00 Catheterized Urine Urine Culture - Final C.albicans/C.dubliniensis Group B Beta Streptococcus Mixed Urogenital Lata 11/30/16 11/30/16 11/30/16 02:01 02:01 07:33 Creatine Kinase 30 32 CK-MB (CK-2) 0.70 Troponin I < 0.012 11/30/16 11/30/16 11/30/16 07:33 14:03 14:03 Creatine Kinase 28 L CK-MB (CK-2) 0.55 0.66 Troponin I < 0.012 < 0.012 Impressions: Abdomen/Pelvis CT 11/30/16 00:00 IMPRESSION: 1. DIFFUSE SMALL BOWEL DILATION CONSISTENT WITH DISTAL SMALL-BOWEL OBSTRUCTION. NO OBVIOUS ETIOLOGY BUT THE POINT OF OBSTRUCTION IS DISTALLY AT THE ILEOCECAL REGION. POSSIBLY DUE TO ADHESIONS FROM PRIOR SURGERY. 2. UMBILICAL HERNIA CONTAINING FAT ONLY. NO INVOLVEMENT OF BOWEL. 3. NO OTHER SIGNIFICANT FINDING. Chest X-Ray 12/01/16 00:00 IMPRESSION: Nasogastric tube appears to be in appropriate position. Abdomen X-Ray 12/01/16 08:00 IMPRESSION: Multiple dilated small bowel loops with air-fluid levels, remain worrisome for small bowel obstruction. Assessment & Plan - Diagnosis (1) Small bowel obstruction Is this a current diagnosis for this admission?: YesPlan: Patient being followed by surgery. N.p.o. NG tube. IV fluids. (2) Diabetes Qualifiers: Diabetes mellitus type: type 2 Diabetes mellitus intermission coordinator insulin use : without correction use Is this a current diagnosis for this admission?: YesPlan: According to pharmacy patient has not had metformin filled in the past 4 years. Hemoglobin A1c > 14.0. Lantus 20 units subcu daily. (3) Urinary tract infection Is this a current diagnosis for this admission?: YesPlan: IV Rocephin pending further culture. - Time Time Spent with patient: 25-34 minutes
--- NOTE | 2016-12-01 17:13 | PROGRESS NOTE E ---
Progress Note NAME: TERRANCE KLEIN : 1955 AGE: 61Y DATE: 12/01/2016 ROOM: 419 SUBJECTIVE: Patient just had an x-ray of the abdomen this morning and showed persistent small bowel loops with air fluid levels, worrisome for small bowel obstruction. The patient, however, denies any abdominal pains, though nauseous. She claims she had a very small amount of flatus this morning. Her white count remained normal at 8.9 and hemoglobin of 13.4. Glucose of 279. OBJECTIVE: Her abdomen is soft though slightly distended, but no definite tenderness. PLAN: The plan is to start an NG tube and hook to low intermittent suction and repeat the obstruction series in a.m. She might need exploratory laparotomy with lysis of adhesions, which most likely is causing her obstruction, if she does have definite obstruction at this time. DICTATING PHYSICIAN: LETICIA SWEENEY M.D. [id number] PHY#: [id number] ID: [id number] JOB#: [id number] ACCT: [id number] cc: >
[2016-12-02] MEDS: NORMAL SALINE 1000 ML 1,000 ML IV PRN (06:37)
[2016-12-02] MEDS: HEPARIN SOD (PORCINE) 5,000 UNIT/ML 1 ML SYRINGE SUBCUT SCH ×3 (06:37→21:58)
[2016-12-02 06:47] LABS: ABSOLUTE LYMPHOCYTES (AUTO) 1.7 10^3/uL (0.5-4.7); ABSOLUTE MONOCYTES (AUTO) 0.8 10^3/uL (0.1-1.4); ABSOLUTE NEUT (AUTO) 5.9 10^3/uL (1.7-8.2); BASOPHILS % (AUTO) 0.3 % (0-2); EOSINOPHILS % (AUTO) 0.2 % (0-6); HEMATOCRIT 38.9 % (36.0-47.0); HEMOGLOBIN 12.9 g/dL (12.0-15.5); HGB HCT DIFFERENCE -0.2; MEAN CORPUSCULAR HGB CONC 33.1 g/dL (32.0-36.0); MEAN CORPUSCULAR VOLUME 88 fl (80-97); MONOCYTES % (AUTO) 9.9 % (3-13); RED BLOOD COUNT 4.44 10^6/uL (3.72-5.28); RED CELL DISTRIBUTION WIDTH 13.3 % (11.5-14.0); SEGMENTED NEUTROPHILS % (AUTO) 69.6 % (42-78); WHITE BLOOD COUNT 8.5 10^3/uL (4.0-10.5)
[2016-12-02 07:07] LABS: ANION GAP 14 (5-19); BLOOD UREA NITROGEN 31 mg/dL (7-20); CALCIUM 8.8 mg/dL (8.4-10.2); CARBON DIOXIDE 30 mmol/L (22-30); CHLORIDE 101 mmol/L (98-107); CREATININE RESULT 0.75 mg/dL (0.52-1.25); GLUCOSE 190 mg/dL (75-110); MAGNESIUM 2.1 mg/dL (1.6-2.3); POTASSIUM 3.3 mmol/L (3.6-5.0)
--- NOTE | 2016-12-02 09:35 | Physician Advisory Note ---
Physician Advisor ProgressNote .: [facility] medical record for this patient. Physician Advisor Statement: Please consider documentin. "RIGO, improved, likely due to " (Cr has come down from 1.28 to 0.75 w /IVF) Thanks! CK
--- NOTE | 2016-12-02 12:18 | PDOC PROGRESS REPORT ---
Subjective Progress Note for:: 12/02/16 Subjective:: Patient had bowel movement this morning. Positive flatus. No abdominal pain. No nausea or vomiting. Physical Exam Vital Signs: Temp Pulse Resp BP Pulse Ox 98.5 F 112 H 18 114/62 97 12/02/16 07:33 12/02/16 07:33 12/02/16 07:33 12/02/16 07:33 12/02/16 07:33 Intake & Output 12/01/16 12/02/16 12/03/16 06:59 06:59 06:59 Intake Total 257 650 Output Total 755 3550 Balance -498 -2900 Weight 76.2 kg 79.8 kg GENERAL: No acute distress HEENT: Conjunctiva clear, nonicteric, moist mucous membranes, no JVD, midline trachea RESPIRATORY: Clear to auscultation bilaterally, no wheezes, no rhonchi CARDIAC: Regular rate and rhythm, no murmurs/gallops/rubs ABDOMEN: Soft, nondistended, nontender, positive bowel sounds, no rebound, no guarding EXTREMETIES: No edema, cyanosis, clubbing NEUROLOGIC: Alert, oriented to person/place/time, CN's grossly intact, no focal deficits SKIN: No rash, wounds PSYCH: Normal mood, normal affect Results Laboratory Results: 12/02/16 06:01 12/02/16 06:01 12/02/16 12/02/16 06:01 06:01 WBC 8.5 RBC 4.44 Hgb 12.9 Hct 38.9 MCV 88 MCH 29.0 MCHC 33.1 RDW 13.3 Plt Count 179 Seg Neutrophils % 69.6 Lymphocytes % 20.0 Monocytes % 9.9 Eosinophils % 0.2 Basophils % 0.3 Absolute Neutrophils 5.9 Absolute Lymphocytes 1.7 Absolute Monocytes 0.8 Absolute Eosinophils 0.0 Absolute Basophils 0.0 Sodium 145.0 Potassium 3.3 L Chloride 101 Carbon Dioxide 30 Anion Gap 14 BUN 31 H Creatinine 0.75 Est GFR ( Amer) > 60 Est GFR (Non-Af Amer) > 60 Glucose 190 H Calcium 8.8 Magnesium 2.1 11/30/16 06:00 Catheterized Urine Urine Culture - Final C.albicans/C.dubliniensis Group B Beta Streptococcus Mixed Urogenital Lata 11/30/16 11/30/16 11/30/16 02:01 02:01 07:33 Creatine Kinase 30 32 CK-MB (CK-2) 0.70 Troponin I < 0.012 11/30/16 11/30/16 11/30/16 07:33 14:03 14:03 Creatine Kinase 28 L CK-MB (CK-2) 0.55 0.66 Troponin I < 0.012 < 0.012 Impressions: Abdomen/Pelvis CT 11/30/16 00:00 IMPRESSION: 1. DIFFUSE SMALL BOWEL DILATION CONSISTENT WITH DISTAL SMALL-BOWEL OBSTRUCTION. NO OBVIOUS ETIOLOGY BUT THE POINT OF OBSTRUCTION IS DISTALLY AT THE ILEOCECAL REGION. POSSIBLY DUE TO ADHESIONS FROM PRIOR SURGERY. 2. UMBILICAL HERNIA CONTAINING FAT ONLY. NO INVOLVEMENT OF BOWEL. 3. NO OTHER SIGNIFICANT FINDING. Chest X-Ray 12/01/16 00:00 IMPRESSION: Nasogastric tube appears to be in appropriate position. Abdomen X-Ray 12/01/16 08:00 IMPRESSION: Multiple dilated small bowel loops with air-fluid levels, remain worrisome for small bowel obstruction. Assessment & Plan - Diagnosis (1) Small bowel obstruction Is this a current diagnosis for this admission?: YesPlan: Patient being followed by surgery. Surgery to start small quantity of fluid intake for now. They will advance as tolerated. (2) Diabetes Qualifiers: Diabetes mellitus type: type 2 Diabetes mellitus intermission coordinator insulin use : without intermission coordinator use Is this a current diagnosis for this admission?: YesPlan: According to pharmacy patient has not had metformin filled in the past 4 years. Hemoglobin A1c > 14.0. Lantus 20 units subcu daily. (3) Urinary tract infection Is this a current diagnosis for this admission?: YesPlan: IV Rocephin pending further culture. (4) RIGO (acute kidney injury) Is this a current diagnosis for this admission?: YesPlan: Secondary to dehydration. Now resolved. - Time Time Spent with patient: 25-34 minutes
[2016-12-02] MEDS: INSULIN GLARGINE,HUM.REC.ANLOG 300 UNIT/3 ML INSULN.PEN SUBCUT SCH (14:11)
--- NOTE | 2016-12-02 17:18 | PROGRESS NOTE E ---
Progress Note NAME: TERRANCE KLEIN : 1955 AGE: 61Y DATE: 12/02/2016 ROOM: 419 The patient just had a bowel movement this morning and also passing flatus. Her abdomen is soft and nontender. Denies any nausea or vomiting. The NG tube was then removed and started on clear liquids. If she tolerates clear liquids, then she can be progressed to soft diet as tolerated. She most likely had some ileus as part of the diabetes and appears to have been resolved. DICTATING PHYSICIAN: LETICIA SWEENEY M.D. [id number] PHY#: [id number] ID: [id number] JOB#: [id number] ACCT: [id number] cc: >
[2016-12-02] MEDS: CEFTRIAXONE 1 GM/D5W RTU 1 GM/50 ML RTUPB IV SCH (21:58)
[2016-12-02] MEDS: INSULIN LISPRO 100 UNIT/ML 3 ML VIAL SUBCUT PRN (22:18)
[2016-12-03 04:44] LABS: ABSOLUTE BASOPHILS # (AUTO) 0.1 10^3/uL (0.0-0.2); ABSOLUTE LYMPHOCYTES (AUTO) 1.9 10^3/uL (0.5-4.7); ABSOLUTE MONOCYTES (AUTO) 1.5 10^3/uL (0.1-1.4); ABSOLUTE NEUT (AUTO) 10.5 10^3/uL (1.7-8.2); BASOPHILS % (AUTO) 0.4 % (0-2); EOSINOPHILS % (AUTO) 0.3 % (0-6); HEMATOCRIT 34.6 % (36.0-47.0); HEMOGLOBIN 11.3 g/dL (12.0-15.5); HGB HCT DIFFERENCE -0.7; LYMPHOCYTES % (AUTO) 13.8 % (13-45); MEAN CORPUSCULAR HEMOGLOBIN 28.6 pg (27.0-33.4); MEAN CORPUSCULAR HGB CONC 32.7 g/dL (32.0-36.0); MEAN CORPUSCULAR VOLUME 88 fl (80-97); MONOCYTES % (AUTO) 10.7 % (3-13); RED BLOOD COUNT 3.95 10^6/uL (3.72-5.28); RED CELL DISTRIBUTION WIDTH 13.4 % (11.5-14.0); SEGMENTED NEUTROPHILS % (AUTO) 74.8 % (42-78)
[2016-12-03 05:10] LABS: ALANINE AMINOTRANSFERASE 18 U/L (9-52); ALBUMIN 2.5 g/dL (3.5-5.0); ALKALINE PHOSPHATASE 74 U/L (38-126); ANION GAP 13 (5-19); ASPARTATE AMINO TRANSFERASE 13 U/L (14-36); BILIRUBIN,DIRECT 0.4 mg/dL (0.0-0.4); BILIRUBIN,TOTAL 0.6 mg/dL (0.2-1.3); BLOOD UREA NITROGEN 16 mg/dL (7-20); CALCIUM 8.2 mg/dL (8.4-10.2); CARBON DIOXIDE 23 mmol/L (22-30); CHLORIDE 103 mmol/L (98-107); CREATININE RESULT 0.67 mg/dL (0.52-1.25); GLUCOSE 208 mg/dL (75-110); SODIUM 138.7 mmol/L (137-145); TOTAL PROTEIN 5.4 g/dL (6.3-8.2)
[2016-12-03 05:23] LABS: POTASSIUM 2.8 mmol/L (3.6-5.0)
[2016-12-03 05:50] LABS: ADD ON TESTING BLD IN LAB ACKNOWLEDGE
[2016-12-03] MEDS: HEPARIN SOD (PORCINE) 5,000 UNIT/ML 1 ML SYRINGE SUBCUT SCH (06:03)
[2016-12-03] MEDS: POTASSIUM CHLORIDE 20 MEQ/15 ML UDCUP PO SCH ×4 (06:03→11:54)
[2016-12-03 06:14] LABS: MAGNESIUM 1.7 mg/dL (1.6-2.3)
[2016-12-03] MEDS: INSULIN LISPRO 100 UNIT/ML 3 ML VIAL SUBCUT PRN ×2 (07:49→11:54)
--- NOTE | 2016-12-03 08:57 | RADIOLOGY REPORT (SQ) ---
EXAM DESCRIPTION: KUB/ABDOMEN (SINGLE VIEW) COMPLETED DATE/TIME: 12/03/2016 8:33 am REASON FOR STUDY: sbo COMPARISON: KUB dated 12/01/[address] scan dated 11/30/2016 NUMBER OF VIEWS: One view. TECHNIQUE: Supine radiographic image of the abdomen acquired. LIMITATIONS: None. FINDINGS: BOWEL GAS PATTERN: Multiple air in fluid distended small bowel loops are again identified consistent with a small bowel obstruction CALCIFICATIONS: No suspicious calcifications. SOFT TISSUES: No gross mass or suggestion of organomegaly. HARDWARE: None in the abdomen. BONES: No acute fracture. No worrisome bone lesions. OTHER: No other significant finding. IMPRESSION: For again there are multiple air and fluid distended small bowel loops consistent with a small bowel obstruction. Other findings as noted above. TECHNICAL DOCUMENTATION: JOB ID: [id number] [employer]- All Rights Reserved
[2016-12-03] MEDS: INSULIN GLARGINE,HUM.REC.ANLOG 300 UNIT/3 ML INSULN.PEN SUBCUT SCH (09:42)
[2016-12-03 12:26] VITALS: BP 112/62
--- NOTE | 2016-12-03 13:32 | PDOC DISCHARGE SUMMARY ---
General - Admit/Disc Date/PCP Admission Date/Primary Care Provider: 11/30/16 01:37 Discharge Date: 12/03/16 - Discharge Diagnosis (1) Small bowel obstruction Is this a current diagnosis for this admission?: Yes (2) Diabetes Is this a current diagnosis for this admission?: Yes (3) Urinary tract infection Is this a current diagnosis for this admission?: Yes (4) RIGO (acute kidney injury) Is this a current diagnosis for this admission?: Yes (5) Hypokalemia Is this a current diagnosis for this admission?: Yes - Additional Information Resuscitation Status: Full Code Discharge Diet: Diabetic, Full Liquids Discharge Activity: Activity As Tolerated Home Medications: Folic Acid/Multivit-Minerals [One Daily Womens 50 Plus Tab] 1 tab PO DAILY 11/30 Insulin Aspart [Novolog Flexpen] 0 unit SUBCUT .SLD SCALE #1 pen 12/03/16 Insulin Glargine,Hum.rec.anlog [Lantus Insulin 100 Unit/mL] 25 unit SUBCUT DAILY #1 insuln.pen 12/03/16 History of Present Illness Patient complains of: Nausea and vomiting History of Present Illness: TERRANCE KLEIN is a 61 year old female a past medical history of insulin-dependent diabetes who is had several weeks without insulin use and over the last few days has had excessive thirst, urination, uncontrolled hyperglycemia nausea and vomiting over the last 12 hours prompting him to seek evaluation emergency room where she is found to be in diabetic ketoacidosis. She started on IV fluids IV insulin and referred to the hospitalist for admission. She denies chest pain shortness of breath or palpitations. Hospital Course Hospital Course: Patient presented with nausea and vomiting. She has been a noncompliant diabetic and has not taken medicine in years. She has not been seen by a physician in a long time either. She does not have established primary care physician. She was admitted to the hospital and initially placed on insulin drip but subsequent transition to Lantus regimen. Blood glucose is stable at time of discharge. We will arrange follow-up with a primary care provider for diabetes. Patient was found to have small bowel obstruction. Surgery was consulted and manage patient conservatively. On 12/02/2016 patient was started on liquid diet and tolerated this well after having return of her bowel function. On day of discharge patient was having bowel movements and flatus and she was told by Dr. Vargas of surgery that she could be discharged home. Her KUB still showed dilated loops of bowel and air-fluid levels however patient was clinically improving and essentially asymptomatic. Patient was discharged home in stable condition at her insistence. I told her I was a little uncomfortable with the fact that her KUB was still abnormal and her white blood count was slightly elevated although she was feeling better. She agreed to come back the next day for repeat x-ray and labs if I would let her go home today. I facilitate her request. Patient had hypokalemia secondary to vomiting and IV fluid administration. This was replaced. I have given patient a lab order to have blood work repeated 24 hours after discharge. Physical Exam Vital Signs: Temp Pulse Resp BP Pulse Ox 98.6 F 110 H 18 112/62 94 12/03/16 11:42 12/03/16 11:42 12/03/16 11:42 12/03/16 11:42 12/03/16 11:42 Intake & Output 12/02/16 12/03/16 12/04/16 06:59 06:59 06:59 Intake Total 650 5460 Output Total 3550 1240 Balance -2900 4220 Weight 79.8 kg 84.2 kg GENERAL: No acute distress HEENT: Conjunctiva clear, nonicteric, moist mucous membranes, no JVD, midline trachea RESPIRATORY: Clear to auscultation bilaterally, no wheezes, no rhonchi CARDIAC: Regular rate and rhythm, no murmurs/gallops/rubs ABDOMEN: Soft, nondistended, nontender, positive bowel sounds, no rebound, no guarding EXTREMETIES: No edema, cyanosis, clubbing NEUROLOGIC: Alert, oriented to person/place/time, CN's grossly intact, no focal deficits SKIN: No rash, wounds PSYCH: Normal mood, normal affect Results Laboratory Results: 12/03/16 04:20 12/03/16 04:20 12/03/16 12/03/16 12/03/16 04:20 04:20 04:20 WBC 14.0 H RBC 3.95 Hgb 11.3 L Hct 34.6 L MCV 88 MCH 28.6 MCHC 32.7 RDW 13.4 Plt Count 149 L Seg Neutrophils % 74.8 Lymphocytes % 13.8 Monocytes % 10.7 Eosinophils % 0.3 Basophils % 0.4 Absolute Neutrophils 10.5 H Absolute Lymphocytes 1.9 Absolute Monocytes 1.5 H Absolute Eosinophils 0.0 Absolute Basophils 0.1 Sodium 138.7 Potassium 2.8 L* Chloride 103 Carbon Dioxide 23 Anion Gap 13 BUN 16 Creatinine 0.67 Est GFR ( Amer) > 60 Est GFR (Non-Af Amer) > 60 Glucose 208 H Calcium 8.2 L Magnesium 1.7 Total Bilirubin 0.6 AST 13 L ALT 18 Alkaline Phosphatase 74 Total Protein 5.4 L Albumin 2.5 L 11/30/16 11/30/16 11/30/16 02:01 02:01 07:33 Creatine Kinase 30 32 CK-MB (CK-2) 0.70 Troponin I < 0.012 11/30/16 11/30/16 11/30/16 07:33 14:03 14:03 Creatine Kinase 28 L CK-MB (CK-2) 0.55 0.66 Troponin I < 0.012 < 0.012 Impressions: Abdomen/Pelvis CT 11/30/16 00:00 IMPRESSION: 1. DIFFUSE SMALL BOWEL DILATION CONSISTENT WITH DISTAL SMALL-BOWEL OBSTRUCTION. NO OBVIOUS ETIOLOGY BUT THE POINT OF OBSTRUCTION IS DISTALLY AT THE ILEOCECAL REGION. POSSIBLY DUE TO ADHESIONS FROM PRIOR SURGERY. 2. UMBILICAL HERNIA CONTAINING FAT ONLY. NO INVOLVEMENT OF BOWEL. 3. NO OTHER SIGNIFICANT FINDING. Chest X-Ray 12/01/16 00:00 IMPRESSION: Nasogastric tube appears to be in appropriate position. Abdomen X-Ray 12/01/16 08:00 IMPRESSION: Multiple dilated small bowel loops with air-fluid levels, remain worrisome for small bowel obstruction. KUB X-Ray 12/03/16 07:30 IMPRESSION: For again there are multiple air and fluid distended small bowel loops consistent with a small bowel obstruction. Other findings as noted above. Qualifiers PATEINT BEING DISCHARGED WITH ANY OF THE FOLLOWING DIAGNOSIS?: No Plan Time Spent: Less than 30 Minutes
[2016-12-04] MEDS ORDERED: INSULIN GLARGINE,HUM.REC.ANLOG 300 UNIT/3 ML INSULN.PEN SUBCUT SCH (10:00)
== END 2016-12-03 13:08 | disposition home or self-care (01) | DRG 389 ==
LOC: ER 23:26 → EH 11-30 01:37 → UNDOADMIN 11-30 01:51 → EH 11-30 01:51 → 4W 11-30 09:40 → 4S 12-02 17:43
PROVIDERS: ADMIT Internal Medicine; ATTEND Internal Medicine
DX: K56.60 Unspecified intestinal obstruction (principal); N39.0 Urinary tract infection, site not specified; N17.9 Acute kidney failure, unspecified; E11.65 Type 2 diabetes mellitus with hyperglycemia; E86.0 Dehydration; E87.6 Hypokalemia; Z79.4 Long term (current) use of insulin; Z91.14 Patient's other noncompliance with medication regimen; Z90.49 Acquired absence of other specified parts of digestive tract; Z87.891 Personal history of nicotine dependence; Z88.8 Allergy status to other drugs, medicaments and biological substances
CPT/HCPCS: 36415; 71010; 74000; 74020; 74177; 80048; 80053; 80307; 81001; 82550; 82553; 82962; 83036; 83735; 84484; 85025; 87086; 87088; 93005; 93010; 96361; 96374; 99285; J0696; J1644; J1815; J2060; J2405; J2550; J3480; J7030

== ENCOUNTER 2016-12-04 23:46 | Inpatient (IN) | payer OTHER ==
--- NOTE | 2016-12-05 01:10 | ER Document Report ---
ED General - General Chief Complaint: abdnormal labs Stated Complaint: ABNORMAL LABS Time Seen by Provider: 12/05/16 01:09 Mode of Arrival: Ambulatory Information source: Patient TRAVEL OUTSIDE OF THE [place] IN LAST 30 DAYS: No - HPI Notes: Pt. reports being discharged from [facility] yesterday after begging the MD's to let her go home, Dr. Fernandez called her tonight before 1900 and told her to go to ED d/t her labs this am and xrays were worse with continued small bowel obstruction on x-ray and a white blood cell count that went up to 24.6 and bicarb went down to 17. Patient was admitted from 11/30 to 12/03/16 with a small bowel obstruction and DKA related to noncompliance with insulin. The patient states her blood sugar at home was 247 earlier this evening. While in the hospital, patient's small bowel obstruction cleared up without the need for surgery. Patient states since she got home yesterday she has had worsening abdominal pain in the right upper abdominal region with distention and fullness. She reports she vomited twice without any blood. She also reports having to mucousy bowel movements without blood. Patient reports decreased flatus and increased belching. She denies any fever. Past medical history cholecystectomy in the , appendectomy in the , tubal ligation, diverticulitis, insulin-dependent diabetes. Medications insulin and folic acid. - Related Data Allergies/Adverse Reactions: oxycodone Adverse Reaction (Verified 11/29/16 23:57) Hives Past Medical History - General Information source: Patient - Social History Smoking Status: Never Smoker Frequency of alcohol use: None Drug Abuse: None Lives with: Family Family History: Reviewed & Not Pertinent Patient has suicidal ideation: No Patient has homicidal ideation: No Endocrine Medical History: Reports: Hx Diabetes Mellitus Type 2 Renal/ Medical History: Denies: Hx Peritoneal Dialysis Past Surgical History: Reports: Hx Cholecystectomy - Immunizations Hx Diphtheria, Pertussis, Tetanus Vaccination: No Review of Systems - Review of Systems Notes: REVIEW OF SYSTEMS: CONSTITUTIONAL : Denies fever, chills, or sweats. Denies recent illness. EENT: Denies eye, ear, throat, or mouth pain or symptoms. Denies nasal or sinus congestion or discharge. Denies throat, tongue, or mouth swelling or difficulty swallowing. CARDIOVASCULAR: Denies chest pain. Denies palpitations or racing or irregular heart beat. Denies ankle edema. RESPIRATORY: Denies cough, cold, or chest congestion. Denies shortness of breath, difficulty breathing, or wheezing. GASTROINTESTINAL: Denies blood in vomitus, stools, or per rectum. Denies black , tarry stools. Denies constipation. GENITOURINARY: Denies difficulty urinating, painful urination, burning, frequency, blood in urine, or discharge. FEMALE GENITOURINARY: Denies vaginal bleeding, heavy or abnormal periods, irregular periods. Denies vaginal discharge or odor. MUSCULOSKELETAL: Denies back or neck pain or stiffness. Denies joint pain or swelling. SKIN: Denies rash, lesions or sores. HEMATOLOGIC : Denies easy bruising or bleeding. LYMPHATIC: Denies swollen, enlarged glands. NEUROLOGICAL: Denies confusion or altered mental status. Denies passing out or loss of consciousness. Denies dizziness or lightheadedness. Denies headache. Denies weakness or paralysis or loss of use of either side. Denies problems with gait or speech. Denies sensory loss, numbness, or tingling. Denies seizures. PSYCHIATRIC: Denies anxiety or stress. Denies depression, suicidal ideation, or homicidal ideation. ALL OTHER SYSTEMS REVIEWED AND NEGATIVE. Dictation was performed using [employer] voice recognition software Physical Exam - Vital signs Vitals: Temp Pulse Resp BP Pulse Ox 98.3 F 130 H 20 101/58 L 94 12/05/16 00:15 12/05/16 00:15 12/05/16 00:15 12/05/16 00:15 12/05/16 00:15 - Notes Notes: PHYSICAL EXAMINATION: GENERAL: Well-appearing, well-nourished and in no acute distress. HEAD: Atraumatic, normocephalic. EYES: Pupils equal round and reactive to light, extraocular movements intact, conjunctiva are normal. ENT: Nares patent, oropharynx clear without exudates. Very dry mucous membranes. NECK: Normal range of motion, supple without lymphadenopathy LUNGS: Breath sounds clear to auscultation bilaterally and equal. No wheezes rales or rhonchi. HEART: Regular rate and rhythm without murmurs ABDOMEN: Tender with fullness to the right upper abdomen. There is a large healed surgical incision site from previous cholecystectomy. Patient also has an umbilical hernia which is not easily reduced, but she is nontender over the umbilical hernia. Patient has high-pitched hyperactive bowel sounds. Female : deferred Musculoskeletal: Normal range of motion, no pitting or edema. No cyanosis. NEUROLOGICAL: Cranial nerves grossly intact. Normal speech, normal gait. Normal sensory, motor exams PSYCH: Normal mood, normal affect. SKIN: Warm, Dry, normal turgor, no rashes or lesions noted. Old bruising noted on the upper extremities from recent IV sites. No palpable cord. Course - Re-evaluation Re-evalutation: 12/05/16 02:29 Patient was rehydrated with IV fluids and was given IV Zofran, Pepcid and Ativan. NG tube was placed by nursing staff. 12/05/16 03:30 Second liter normal saline with 20 KCl was administered. 12/05/16 06:34 CT scan showed small bowel obstruction. Question was raised about a possible atelectasis versus pneumonia. Given the elevated white blood cell count, we will cover for pneumonia although patient denies having any cough. Given the recent hospitalization, patient was given IV Zosyn and Levaquin after blood cultures were drawn. Discussion was undertaken with the patient and she was in agreement with admission for further evaluation and care. Discussion was undertaken with the hospitalist Dr. Black, and he agreed to admit the patient for further care and management. - Vital Signs Vital signs: Temp Pulse Resp BP Pulse Ox 98.3 F 130 H 18 111/57 L 92 12/05/16 00:15 12/05/16 00:15 12/05/16 04:47 12/05/16 04:47 12/05/16 04:47 - Laboratory Result Diagrams: 12/05/16 02:44 12/05/16 02:44 Laboratory results interpreted by me: 12/05/16 12/05/16 02:44 02:44 WBC 25.3 H Abs Neuts (Manual) 20.2 H Abs Monocytes (Manual) 1.5 H Sodium 134.3 L Potassium 3.4 L Chloride 94 L Carbon Dioxide 19 L Anion Gap 21 H Glucose 262 H Direct Bilirubin 0.5 H Total Protein 6.2 L Albumin 2.9 L Critical Care Note - Critical Care Note Total time excluding time spent on procedures (mins): 33 Discharge - Discharge Clinical Impression: Small bowel obstruction, Dehydration, Metabolic acidosis Vomiting Qualifiers: Vomiting type: unspecified Vomiting Intractability: non-intractable Nausea presence: with nausea Qualified Code(s): R11.2 - Nausea with vomiting, unspecified Disposition: ADMITTED INPATIENT Admitting Provider: Hospitalist Unit Admitted: [facility]
[2016-12-05] MEDS ORDERED: NORMAL SALINE 1000 ML 1,000 ML IV ONE (01:27)
[2016-12-05] MEDS ORDERED: FAMOTIDINE INJ/PF 20 MG/2 ML SDV IV ONE (01:30)
[2016-12-05] MEDS ORDERED: ONDANSETRON HCL INJ/PF 4 MG/2 ML SDV IV ONE (01:30)
[2016-12-05] MEDS ORDERED: LORAZEPAM INJ 2 MG/1 ML VIAL IV ONE (01:30)
[2016-12-05] MEDS ORDERED: PHARMACY COMMUNICATION ORDER MC NR ×2 (01:30→08:15)
[2016-12-05 02:53] LABS: HEMATOCRIT 38.3 % (36.0-47.0); HEMOGLOBIN 12.3 g/dL (12.0-15.5); HGB HCT DIFFERENCE -1.4; MEAN CORPUSCULAR HEMOGLOBIN 28.4 pg (27.0-33.4); MEAN CORPUSCULAR HGB CONC 32.2 g/dL (32.0-36.0); MEAN CORPUSCULAR VOLUME 88 fl (80-97); RED BLOOD COUNT 4.34 10^6/uL (3.72-5.28); RED CELL DISTRIBUTION WIDTH 13.1 % (11.5-14.0); WHITE BLOOD COUNT 25.3 10^3/uL (4.0-10.5)
[2016-12-05 03:04] LABS: ALANINE AMINOTRANSFERASE 27 U/L (9-52); ALBUMIN 2.9 g/dL (3.5-5.0); ALKALINE PHOSPHATASE 114 U/L (38-126); ASPARTATE AMINO TRANSFERASE 16 U/L (14-36); BILIRUBIN,DIRECT 0.5 mg/dL (0.0-0.4); BILIRUBIN,TOTAL 0.9 mg/dL (0.2-1.3); BLOOD UREA NITROGEN 16 mg/dL (7-20); CALCIUM 8.9 mg/dL (8.4-10.2); CARBON DIOXIDE 19 mmol/L (22-30); CREATININE RESULT 0.95 mg/dL (0.52-1.25); GLUCOSE 262 mg/dL (75-110); LIPASE 44.4 U/L (23-300); POTASSIUM 3.4 mmol/L (3.6-5.0); TOTAL PROTEIN 6.2 g/dL (6.3-8.2)
[2016-12-05 03:11] LABS: BAND NEUTROPHILS % (MANUAL) 5 % (3-5); BASOPHILS % (MANUAL) 0 % (0-2); CHLORIDE 94 mmol/L (98-107); EOSINOPHILS % (MANUAL) 0 % (0-6); LYMPHOCYTES % (MANUAL) 13 % (13-45); SODIUM 134.3 mmol/L (137-145); TOTAL CELLS COUNTED 100
[2016-12-05 03:12] LABS: ANION GAP 21 (5-19); TOXIC GRANULATION SLIGHT
[2016-12-05 03:14] LABS: PLATELET CLUMPS PRESENT; RBC MORPHOLOGY COMMENT NORMO-CYTIC/CHROMIC
[2016-12-05] MEDS ORDERED: POTASSI CL 20 MEQ/NS 1L 1,000 ML IV ONE (03:29)
--- NOTE | 2016-12-05 03:45 | RADIOLOGY REPORT (SQ) ---
EXAM DESCRIPTION: KUB/ABDOMEN (SINGLE VIEW) COMPLETED DATE/TIME: 12/05/2016 3:06 am REASON FOR STUDY: Check Placement of NG Tube COMPARISON: None. NUMBER OF VIEWS: One view. TECHNIQUE: Supine radiographic image of the abdomen acquired. LIMITATIONS: None. FINDINGS: BOWEL GAS PATTERN: Tip and proximal port of a nasogastric tube likely adequate overlying t he left upper abdominal quadrant ; proximal port is 1 cm below the expected diaphragm. Persistent di lated small bowel loops measure up to 4.8 cm in the left paracentral lower abdomen. CALCIFICATIONS: No suspicious calcifications. SOFT TISSUES: No gross mass or suggestion of organomegaly. HARDWARE: As above. BONES: No acute fracture. No worrisome bone lesions. Moderate disc desiccation spondylosis. OTHER: No other significant finding. IMPRESSION: Persistent dilated small bowel. NG tube. TECHNICAL DOCUMENTATION: JOB ID: [id number] [employer]- All Rights Reserved
--- NOTE | 2016-12-05 04:31 | RADIOLOGY REPORT (SQ) ---
EXAM DESCRIPTION: CT ABD/PELVIS WITH IV ONLY COMPLETED DATE/TIME: 12/05/2016 3:48 am REASON FOR STUDY: recent SBO, prior choley, RUQ pain / fullness COMPARISON: CR, 12/05/2016. His 6.. TECHNIQUE: CT scan of the abdomen and pelvis performed using helical scanning technique with dynamic intravenous contrast injection. No oral contrast. Images reviewed with lung, soft tissue, and bone windows. Reconstructed coronal and sagittal MPR images reviewed. Delayed images for evaluation of the urinary system also acquired. All images stored on PACS. All CT scanners at this facility use dose modulation, iterative reconstruction, and/or weight based d osing when appropriate to reduce radiation dose to as low as reasonably achievable (ALARA). [facility]: Dose Right [facility]: CareDose [facility]: Dose Right [facility]: Teradose 4D [facility]: EqualEyes CONTRAST TYPE AND DOSE: contrast/concentration: Isovue 370.00 mg/ml; Total Contrast Delivered: 91.0 ml; Total Saline Delivered: 70.0 ml RENAL FUNCTION: Creatinine 1.0 RADIATION DOSE: Up-to-date CT equipment and radiation dose reduction techniques were employed. CTDIv ol: 16.8 - 19.9 mGy. DLP: 2093 mGy-cm.. LIMITATIONS: None. FINDINGS: LOWER CHEST: New small bandlike consolidation of the left lower lobe and and minimally of the right lower lobe. LIVER: Normal size. No masses or dilated ducts. SPLEEN: Normal size. No focal lesions. PANCREAS: No masses. No significant calcifications. No adjacent inflammation or peripancreatic fluid collections. Pancreatic duct not dilated. GALLBLADDER: Surgically absent. ADRENAL GLANDS: No significant masses or asymmetry. RIGHT KIDNEY AND URETER: No solid masses. No significant calcifications. No hydronephrosis or hyd roureter. LEFT KIDNEY AND URETER: Indeterminate 2.6 cm complex cystic exophytic mass with calcification of the left kidney, inferior pole. AORTA AND VESSELS: No aneurysm. No dissection. Renal arteries, SMA, celiac without stenosis. RETROPERITONEUM: No retroperitoneal adenopathy, hemorrhage or masses. BOWEL AND PERITONEAL CAVITY: Adequate appearing NG tube with. Moderate small bowel obstruction patte rn. Mid pelvic dilated small bowel loops measure up to 4.0 cm without significant interval change. New small ascites. Noted transition is not identified. Decompressed colon 3.6 cm fat only umbilica l hernia. APPENDIX: Not discerned. PELVIS: No mass or free fluid. Normal bladder. ABDOMINAL WALL: No masses. No hernias. BONES: No significant or acute findings. OTHER: No other significant finding. IMPRESSION: 1. Small bowel obstruction pattern. Small ascites. 2. Small bilateral lower lobar pn eumonia/atelectasis, left more than right. 3. Indeterminate complex 2.6 cm cystic mass of the left kidney ; recommend dynamic contrast CT (or MRI) of the kidneys. TECHNICAL DOCUMENTATION: JOB ID: [id number] Quality ID # [id number]: Final reports with documentation of one or more dose reduction techniques (e.g., Au tomated exposure control, adjustment of the mA and/or kV according to patient size, use of iterative reconstruction technique) 2010 [employer]- All Rights Reserved
[2016-12-05] MEDS ORDERED: PIPERACILLIN/TAZOBACTAM 3.375 GM VIAL IV ONE (05:46)
[2016-12-05] MEDS ORDERED: LEVOFLOXACIN 750 MG/D5W RTU 150 ML IV ONE (05:47)
[2016-12-05] MEDS ORDERED: DEXTROSE 40% GEL 15 GM TUBE PO PRN ×2 (07:40)
[2016-12-05] MEDS ORDERED: DEXTROSE 50%-WATER 25 GM/50 ML DISP.SYRIN IV PRN ×2 (07:40)
[2016-12-05] MEDS ORDERED: GLUCAGON,HUMAN RECOMB 1 MG INJ IM PRN (07:40)
[2016-12-05] MEDS ORDERED: ONDANSETRON HCL INJ/PF 4 MG/2 ML SDV IV PRN ×4 (08:04→19:29)
[2016-12-05] MEDS ORDERED: HYDROMORPHONE HCL INJ/PF 2 MG/ML AMPULE IV PRN ×2 (08:04→16:11)
[2016-12-05] MEDS ORDERED: IPRATROPIUM/ALBUTEROL 0.5-2.5 MG/3 ML AMPUL NEB PRN (08:09)
[2016-12-05] MEDS ORDERED: VANCOMYCIN HCL 0 MG in DEXTROSE 5%-WATER 250 ML IV NR (08:15)
--- NOTE | 2016-12-05 08:37 | RADIOLOGY REPORT (SQ) ---
EXAM DESCRIPTION: KUB/ABDOMEN (SINGLE VIEW) COMPLETED DATE/TIME: 12/05/2016 8:28 am REASON FOR STUDY: Check Placement of NG Tube COMPARISON: None. NUMBER OF VIEWS: One view. TECHNIQUE: Erect radiographic image of the abdomen acquired. LIMITATIONS: None. FINDINGS: BOWEL GAS PATTERN: Dilated small bowel similar to previous CALCIFICATIONS: No suspicious calcifications. SOFT TISSUES: No gross mass or suggestion of organomegaly. HARDWARE: Nasogastric tube tip in the stomach. BONES: No acute fracture. No worrisome bone lesions. OTHER: No other significant finding. IMPRESSION: Nasogastric tube tip in the stomach. TECHNICAL DOCUMENTATION: JOB ID: [id number] [employer]- All Rights Reserved
--- NOTE | 2016-12-05 08:45 | PDOC H&P ---
History of Present Illness Admission Date/PCP: 12/05/16 07:45 None Patient complains of: abd pain, n/v History of Present Illness: TERRANCE KLEIN is a 61 year old female with underlying type 1 diabetes mellitus, with long-term noncompliance with medications and physician follow-up , arthritis, along with personal history of DVT and pulmonary embolus before the year 1999, who presents to the emergency room for evaluation of above complaints. Patient has been discussed with emergency room physician who evaluated the patient. Patient was hospitalized on our service the through the of this month with discharge diagnoses including small bowel obstruction, acute kidney injury , diabetes mellitus, urinary tract infection and hypokalemia. Patient was quite insistent upon being discharged home, but did agree to come back the following day for repeat x-rays and labs. Discharge summary reviewed. She did present for follow-up testing, with Dr. Fernandez, daytime hospitalist, contacting her to tell her to come back to the emergency room due to the abnormal findings on both blood work and x-rays. She has had intermittent mild to moderate sharp cramping abdominal pain, most noticeable in the right upper quadrant. A bit worse with certain movements. Nausea and and a number of episodes of nonbloody emesis. Last flatus approximately 10:30 PM the evening of the . Small mucous bowel movement during that time span. No fever or chills. Workup is consistent with small bowel obstruction, probable bibasilar pneumonia , with patient stating she has had a recent cough, abnormal CT scan of the left kidney, uncontrolled diabetes mellitus with metabolic acidosis, with repeat labs pending. Nasogastric tube is in place draining small amount of dark bile-stained fluid. Patient does state she is having less abdominal discomfort since placement of the nasogastric tube. Laboratory results are listed in [employer] and are reviewed. X-ray summary results are listed below, with full report(s) reviewed. . Social history/personal habits: . Lives with son. 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 No use of alcohol tobacco or illicit drugs. Allergies/adverse reactions are listed in [employer] and are reviewed. No problems with Vicodin, Dilaudid, and morphine. Home medications initially autopopulated into [employer] may not accurately reflect patient's true medications, dosages, and/or frequencies. tomography technologist to reconcile medications. Unfortunately, patient not certain of all medications/dosages/frequencies. REVIEW OF SYSTEMS: Constitutional: No fever or chills. Eyes: Wears glasses. ENT: No swallowing problems or complaints. Denies hearing loss. Pulmonary: See history and present illness. Cardiovascular: No current complaints, including chest pain. Gastrointestinal: See history and present illness. Skin: No current complaints, including rashes. Hematologic: Denies easy bruising. Neurologic: No current complaints, including numbness or tingling. Musculoskeletal: Joint pain from arthritis. Psychiatric: Denies anxiety or depression. Endocrine: No current complaints, including polyuria. Genitourinary: No current complaints, including dysuria. PHYSICAL EXAMINATION: 5 feet 4 inches tall. 84.5 kg. BMI 32 kg/m. Blood pressure 121/66. Pulse 121 and regular. 91% saturation on room air. Respirations are 22 and unlabored. Temperature 98.5. Obese chronically ill appearing somewhat disheveled female who appears a bit older than her stated age. Pleasant awake alert and cooperative. Appears slightly fatigued. Emergency room nursing executive Gómez is present. Skin is warm and dry. No grossly obvious evidence of rash in areas of skin examined. No subcutaneous nodules palpated. ENT: Hearing grossly normal to normal conversation. Tongue midline on protrusion pink and slightly tacky. Nasogastric tube is in place draining small amount of dark bile-stained fluid Eyes: No scleral icterus. Pupils equal and reactive to light at 4 mm. Harlan conjunctivae. Neck is supple and nontender to gentle active range of motion and palpation. Midline trachea. No palpable thyroid nodule mass enlargement or tenderness. Lymphatic: No palpable cervical or clavicular nodes. Neck and lymphatic exams limited by patient body habitus. Psychiatric: Reasonable insight into acute and chronic medical issues. Oriented to time location and why here. Lungs: Auscultation reveals clear and equal breath sounds bilaterally. No use of accessory respiratory muscles. Cardiovascular: Heart regular rate and rhythm, without gallop murmur or rub. No carotid or abdominal aortic bruits. No ankle or pedal edema. Faintly palpable dorsalis pedis pulses. Abdomen:soft somewhat distended distended with positive bowel sounds. Mild right upper quadrant tenderness, without jonny guarding or peritoneal signs. Unable to adequately evaluate abdomen for masses or organomegaly due to distention and discomfort. Extremities: Feet are warm and dry. No calf tenderness to compression. No grossly obvious visual evidence of calf swelling. Gentle manipulation of lower extremities fails to reveal any obvious evidence of injury or instability to knees hips or ankles. Neurologic: Moves upper extremities grossly normally. Patellar reflexes absent. Absent Babinski. Light touch is intact at feet. Dorsiflexion and plantarflexion of feet 5 / 5 and symmetric. Past Medical History Cardiac Medical History: Reports: DVT, Pulmonary Embolism Denies: Congestive Heart Failure, Myocardial Infarction, Hyperlipidema, Hypertension Pulmonary Medical History: Denies: Asthma, Chronic Obstructive Pulmonary Disease (COPD), Sleep Apnea EENT Medical History: Reports: Eyes - Glasses, Ears - Partial hearing loss Denies: Throat Neurological Medical History: Denies: Hemorrhagic CVA, Ischemic CVA, Seizures Endocrine Medical History: Reports: Diabetes Mellitus Type 1 Denies: Hyperthyroidism, Hypothyroidism Renal/ Medical History: Reports: None GI Medical History: Denies: Cirrhosis, Gastroesophageal Reflux Disease, Hepatitis, Peptic Ulcer Disease Musculoskeltal Medical History: Reports: Arthritis Skin Medical History: Reports: None Psychiatric Medical History: Denies: Depression, General Anxiety Disorder, Substance Abuse, Tobacco Dependency Hematology: Reports: None Infectious Medical History: Denies: Clostridium Difficile, Hepatitis B, Hepatitis C, Methicillin- Resistant Staph Aureus Past Surgical History Past Surgical History: Reports: Appendectomy, Cholecystectomy, Tubal Ligation Social History Information Source: Patient, Emergency Med Personnel, [facility] Records Lives with: Family Smoking Status: Never Smoker Frequency of Alcohol Use: None Hx Recreational Drug Use: No Drugs: None Hx Prescription Drug Abuse: No - Advance Directive Resuscitation Status: Full Code Surrogate healthcare decision maker:: Her son Family History Family History: Reviewed & Not Pertinent Parental Family History Reviewed: Yes - Mother of diabetic complications; father of gunshot wound to the head. Children Family History Reviewed: Yes - Healthy Sibling(s) Family History Reviewed.: Yes - Healthy Medication/Allergy Home Medications: Folic Acid/Multivit-Minerals [One Daily Womens 50 Plus Tab] 1 tab PO DAILY 11/30 Insulin Aspart [Novolog Flexpen] 0 unit SUBCUT .SLD SCALE 12/05/16 Insulin Glargine,Hum.rec.anlog [Lantus] 25 unit SQ DAILY 12/05/16 Amox Tr/Potassium Clavulanate [Augmentin 875-125 mg Tablet] 1 tab PO BID #6 tablet 06/23/17 Fluconazole [Diflucan] 150 mg PO ONCE PRN #1 tablet 12/10/16 Furosemide [Lasix 20 mg Tablet] 20 mg PO QAM #3 tablet 12/10/16 Allergies/Adverse Reactions: oxycodone Adverse Reaction (Verified 12/05/16 08:00) Hives Physical Exam Vital Signs: Temp Pulse Resp BP Pulse Ox 98.3 F 130 H 21 H 112/63 92 12/05/16 00:15 12/05/16 00:15 12/05/16 07:01 12/05/16 07:01 12/05/16 07:01 Results Impressions: KUB X-Ray 12/05/16 01:30 IMPRESSION: Persistent dilated small bowel. NG tube. Abdomen/Pelvis CT 12/05/16 01:31 IMPRESSION: 1. Small bowel obstruction pattern. Small ascites. 2. Small bilateral lower lobar pneumonia/atelectasis, left more than right. 3. Indeterminate complex 2.6 cm cystic mass of the left kidney ; recommend dynamic contrast CT (or MRI) of the kidneys. Assessment & Plan - Diagnosis (1) Diabetes mellitus type 1, uncontrolled Qualifiers: Diabetes mellitus complication status: without complication Qualified Code(s): E10.9 - Type 1 diabetes mellitus without complications Is this a current diagnosis for this admission?: YesPlan: Repeat Chem-7 pending. If remains acidotic, will consider proceeding with DKA protocol. Accu-Cheks with appropriate sliding scale coverage. (2) Basal pneumonia of both lungs Is this a current diagnosis for this admission?: YesPlan: Patient will be admitted under pneumonia protocol. Incentive spirometry twice a day. As needed DuoNeb's. Antibiotics will consist of intravenous vancomycin, cefepime, aztreonam, for suspected hospital-acquired pneumonia, given findings on x-ray and her recent hospital stay.. Patient is a full code. I have strongly encouraged patient not to get out of bed without notifying staff , to avoid a fall with injury. Knee high SCDs for DVT prophylaxis, along with subcutaneous Lovenox. Impression and plans were discussed with patient who concurs. Time spent in evaluation and management of patient: 72 critical-care minutes. (3) Abnormal CT scan, kidney Is this a current diagnosis for this admission?: YesPlan: Further imaging has been ordered by day hospitalist. Patient understands that further workup will be necessary to ensure the area of concern is not a cancer. Discussed with patient in layperson's terms. ADDENDUM: Above discussed by phone w/Salvador, nurse @ Dr. Vargas' office, where patient has postop visit 12/17/16. Discussion at 1333, 12/13/16. Dr. Vargas not present in office. Told her MRI of kidney scheduled for 12/05/16 cancelled due to patient going to OR. Told her CT 11/30/16 saw nothing of importance in left kidney, but CT revealed abnormal area, left kidney, that needs further investigation/ imaging. Told her also that patient has no primary care provider, so Dr. Vargas will need to pursue further investigation of the area. She stated she will make sure Dr. Vargas has above information. (4) Small bowel obstruction Is this a current diagnosis for this admission?: YesPlan: Nasogastric tube. Surgery consult. IV Pepcid for gastritis prophylaxis. (5) Hypokalemia Is this a current diagnosis for this admission?: YesPlan: Potassium replacement with follow-up chemistry. - Inpatient Certification Based on my medical assessment, after consideration of the patient's comorbidities, presenting symptoms, or acuity I expect that the services needed warrant INPATIENT care.: No I certify that my determination is in accordance with my understanding of Medicare's requirements for reasonable and necessary INPATIENT services [42 CFR 412.3e].: Yes Medical Necessity: Need Close Monitoring Due to Risk of Patient Decompensation, Need For IV Fluids, Need For Continuous Telemetry Monitoring, Need for Nebulizer Therapy and Monitoring of Response, Need for IV Antibiotics, Risk of Diagnosis Which Will Require Inpatient Eval/Care/Monitoring Post Hospital Care: D/C or Transfer Summary
[2016-12-05] MEDS ORDERED: HYDROMORPHONE HCL INJ/PF 2 MG/ML AMPULE ONE (09:17)
[2016-12-05] MEDS ORDERED: MIDAZOLAM 2 MG/2 ML INJ ONE (09:17)
[2016-12-05] MEDS ORDERED: ACETAMINOPHEN 100 ML IV ONE (09:18)
[2016-12-05] MEDS ORDERED: PROPOFOL INJ 200 MG/20 ML VIAL IV ONE (09:18)
[2016-12-05] MEDS ORDERED: EPHEDRINE SULFATE INJ 50 MG/1 ML AMPULE ONE (09:18)
[2016-12-05] MEDS ORDERED: IBUPROFEN INJ 800 MG/8 ML VIAL IV ONE (09:18)
[2016-12-05] MEDS ORDERED: SUCCINYLCHOLINE CHLORIDE INJ 200 MG/10 ML VIAL ONE (09:25)
[2016-12-05] MEDS ORDERED: GLYCOPYRROLATE INJ 0.4 MG/2 ML VIAL ONE (09:25)
[2016-12-05] MEDS ORDERED: NEOSTIGMINE METHYLSULFATE 10 MG/10 ML VIAL ONE (09:25)
[2016-12-05] MEDS ORDERED: METOCLOPRAMIDE HCL INJ/PF 10 MG/2 ML SDV ONE (09:25)
[2016-12-05] MEDS ORDERED: ROCURONIUM BROMIDE INJ 50 MG/5 ML VIAL IV ONE (09:25)
[2016-12-05] MEDS ORDERED: ONDANSETRON HCL INJ/PF 4 MG/2 ML SDV ONE (09:25)
[2016-12-05] MEDS ORDERED: PHENYLEPHRINE HCL INJ/PF 10 MG/1 ML SDV ONE ×2 (09:25→15:16)
[2016-12-05] MEDS ORDERED: FENTANYL CITRATE INJ/PF 100 MCG/2 ML AMPUL ONE (09:48)
[2016-12-05] MEDS ORDERED: POTASSI CL 20 MEQ/50 ML RIDER 20 MEQ/50 ML RTUPB IV ONE ×2 (10:00→11:13)
[2016-12-05] MEDS ORDERED: ENOXAPARIN SODIUM INJ 40 MG/0.4 ML DISP.SYRIN SUBCUT SCH (10:00)
[2016-12-05] MEDS ORDERED: AZTREONAM 2 GM in DEXTROSE 5%-WATER 100 ML IV ONE (11:00)
[2016-12-05] MEDS ORDERED: SODIUM BICARBONATE 8.4% INJ 50 MEQ/50 ML DISP.SYRIN ONE (11:15)
[2016-12-05] MEDS ORDERED: VANCOMYCIN HCL 750 MG in DEXTROSE 5%-WATER 250 ML IV SCH (13:00)
[2016-12-05] MEDS ORDERED: DIPHENHYDRAMINE HCL 50 MG/ML VIAL IV PRN (13:51)
[2016-12-05] MEDS ORDERED: MEPERIDINE HCL/PF INJ 25 MG/1 ML DISP.SYRIN IV PRN (13:51)
[2016-12-05] MEDS ORDERED: FENTANYL CITRATE INJ/PF 100 MCG/2 ML AMPUL IV PRN ×3 (13:51)
[2016-12-05] MEDS ORDERED: OXYCODONE-ACETAMINOPHEN 5-325 MG TABLET PO PRN ×2 (13:51)
[2016-12-05] MEDS ORDERED: MORPHINE SULFATE 10 MG/ML INJ IV PRN (13:51)
[2016-12-05] MEDS ORDERED: PROMETHAZINE HCL INJ 25 MG/1 ML VIAL IV PRN ×2 (13:51)
[2016-12-05] MEDS ORDERED: CEFEPIME 2 GM/D5W RTU 2 GM/50 ML RTUPB IV SCH (14:00)
--- NOTE | 2016-12-05 15:19 | PDOC PROGRESS REPORT ---
Subjective Progress Note for:: 12/05/16 Subjective:: Patient has right-sided abdominal pain. Nausea. No vomiting. No fever. Physical Exam Vital Signs: Temp Pulse Resp BP Pulse Ox 98.3 F 120 H 18 114/55 L 93 12/05/16 08:48 12/05/16 09:00 12/05/16 08:48 12/05/16 08:48 12/05/16 08:48 Intake & Output 12/04/16 12/05/16 12/06/16 06:59 06:59 06:59 Intake Total 9600 Output Total 5600 Balance 4000 GENERAL: No acute distress, ill-appearing HEENT: Conjunctiva clear, nonicteric, moist mucous membranes, no JVD, midline trachea RESPIRATORY: Clear to auscultation bilaterally, no wheezes, no rhonchi CARDIAC: Regular rate and rhythm, no murmurs/gallops/rubs ABDOMEN: Soft, nondistended, right-sided abdominal tenderness, positive bowel sounds, no rebound, no guarding EXTREMETIES: No edema, cyanosis, clubbing NEUROLOGIC: Alert, oriented to person/place/time, CN's grossly intact, no focal deficits SKIN: No rash, wounds PSYCH: Normal mood, normal affect Results Impressions: Abdomen/Pelvis CT 12/05/16 01:31 IMPRESSION: 1. Small bowel obstruction pattern. Small ascites. 2. Small bilateral lower lobar pneumonia/atelectasis, left more than right. 3. Indeterminate complex 2.6 cm cystic mass of the left kidney ; recommend dynamic contrast CT (or MRI) of the kidneys. KUB X-Ray 12/05/16 08:08 IMPRESSION: Nasogastric tube tip in the stomach. Assessment & Plan - Diagnosis (1) SBO (small bowel obstruction) Is this a current diagnosis for this admission?: YesPlan: N.p.o., IV fluid, NG tube. As needed pain and nausea medicines. Leukocytosis and acidosis as well as increasing abdominal pain with suggest bowel ischemia. Consult surgery. 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 Previous documentation indicates type 1 diabetes with DKA. Her acidosis is likely secondary to acute intra-abdominal process. Continue Lantus and sliding scale insulin. (3) Abnormal CT scan, kidney Is this a current diagnosis for this admission?: YesPlan: Check MRI of the abdomen to further evaluate 2.6 cm left renal complex cyst. (4) Basal pneumonia of both lungs Is this a current diagnosis for this admission?: YesPlan: Likely bacterial. Continue aztreonam, cefepime, vancomycin initiated on admission. (5) Hypokalemia Is this a current diagnosis for this admission?: Yes - Time Time Spent with patient: 35 or more minutes
--- NOTE | 2016-12-05 15:53 | OPERATIVE REPORT E ---
Operative Report NAME: TERRANCE KLEIN : 1955 AGE: 61Y DATE OF SURGERY: ROOM: 304 PREOPERATIVE DIAGNOSIS: Small bowel obstruction. POSTOPERATIVE DIAGNOSIS: Strangulated internal hernia of small bowel, closed loop obstruction. OPERATION: 1. Resection of gangrenous small bowel. 2. Resection of cecum. 3. Ileoascending colostomy. SURGEON: LETICIA SWEENEY M.D. ANESTHESIA: General. INDICATION: This is a 61-year-old female who was admitted a few days ago for a small bowel obstruction. Patient denies any pains initially, and had a bowel movement and passage of flatus, and subsequently discharged about 2 days ago. Yesterday she started complaining of more abdominal pains, and nausea and vomiting. She came to the Emergency Room where a CAT scan of the abdomen was done and showed small bowel obstruction. Her white count is up to 25,000, and she is complaining of a lot of pains primarily along the right upper quadrant area. PROCEDURE: After adequate general anesthesia, the patient was placed in the supine position, and the abdomen prepped and draped in the usual sterile fashion. An appropriate timeout was done. A midline incision was then made just above the umbilicus to the xiphoid area. Incision deepened down to the fascia. Abdomen was then entered, and a lot of adhesions were noted. There was a foul-smelling odor on entering the abdomen. Eventually a piece of gangrenous small bowel was noted. This was traced into the area of the cecum where there was a constricting band causing a closed loop obstruction. The band was released, and the bowel divided close to the area of the cecum and about 1 foot long. The distal end where it was viable was also divided with the Endo DEMETRA. Next, because there was a lot of adhesions and the large bowel was at the area of the right upper quadrant, it was felt that there was another piece of small bowel that can be hooked up to the other normal small bowel. Eventually I figured out that the area actually was right at the cecum, and a small bowel remnant at the terminal ileum was quite short, about at most 2 inches long, and the vascularity after dissection was questionable. Because of this, the cecum was then divided with a 90 TA. The cecum was then mobilized from the lateral gutter with the use of cautery. I needed a Bookwalter retractor to get exposure of the site since the cecum appeared to be quite adherent to the right upper quadrant where the patient had the previous cholecystectomy. From the history the patient claims that she had an open cholecystectomy, and an incidental appendectomy was done at the same time, around 1984. The adhesions along the right upper quadrant were lysed, as well as the lateral attachments of the ascending colon. An area of the ascending colon was then cleared in preparation for the anastomosis. Attention was then directed back to the small intestine, the distal end of the divided small bowel vascularity was questionable and, therefore, about 5 inches of the bowel was then stapled with the DEMETRA, and the mesentery serially cut and divided with #0 Vicryl. The small intestine was then anastomosed [id number] to the ascending colon with a DEMETRA 55 stapler. The defect between the large intestine and the small bowel was then closed with a TA 60. There was a good opening between the small intestine and the large intestine on palpation. The tip of the anastomosis was reapproximated with 2-0 silk just beyond the last stapler. The abdominal cavity was then copiously irrigated with saline solution. The mesenteric defect was then closed with interrupted sutures using 2-0 Vicryl. The fascia was then closed with double-strand #0 PDS. The skin was then stapled, and Telfa mae soaked in Betadine were used to place in between the angela. This was done to prevent infection since the large bowel was open and there was a question of contamination by the large bowel content. Sterile dressings were then placed over the operative site. Needle, instrument, and sponge count were all correct and estimated blood loss about 100 mL. The patient then brought to the recovery room in satisfactory condition. DICTATING PHYSICIAN: LETICIA SWEENEY M.D. [id number] PHY#: [id number] ID: [id number] JOB#: [id number] ACCT: [id number] cc:LETICIA SWEENEY M.D. >
[2016-12-05] MEDS ORDERED: DEXTROSE 5%-WATER 250 ML with NOREPINEPHRINE BITARTRATE 4 MG IV PRN ×6 (15:57→19:22)
[2016-12-05] MEDS ORDERED: DEXTROSE 5%-WATER 250 ML with PHENYLEPHRINE HCL 40 MG IV PRN ×2 (16:26)
--- NOTE | 2016-12-05 17:31 | PDOC PROGRESS REPORT ---
Bedside Procedure - Central Line Right Internal jugular Time completed: 17:15 Consent obtained: Yes Central line pre-insertion: Sterile PPE donned, Chloraprep applied, Sterile drapes applied Central line lumen type: Triple Anesthetic type: 1% Lidocaine Ultrasound guided: Yes - right IJ identified as compressible structure Line secured with sutures: Yes Central line post-insertion: Blood return from lumens, Biopatch applied, Sutured , Sterile dressing applied, Position confirmed w/ CXR Number of attempts: 1 Complications: No Notes: 12/05/16 17:29 Procedure: Right internal Jugular Central Venous Catheter Placement Under Ultrasound Guidance. Indication For Procedure: Septic shock Consent obtained prior to procedure. Procedure Description: Time out performed. Patient placed in Trendelenburg position. Right internal jugular identified as compressible structure on ultrasound prior to initiation of procedure. Area prepped and draped in sterile fashion. Right internal jugular again identified under ultrasound guidance. Introducer needle inserted with good nonpulsatile venous blood return. Guidewire placed and introducer needle removed. Skin dilator introduced. Triple lumen central venous catheter placed over guidewire. All 3 ports flushed well. Biopatch placed and line sutured into position. Patient tolerated procedure well. Chest x-ray will be obtained to verify line placement and rule out complication.
[2016-12-05] MEDS: LEVOFLOXACIN 750 MG/D5W RTU 750 MG/150 ML RTUPB IV SCH (17:38)
--- NOTE | 2016-12-05 17:55 | RADIOLOGY REPORT (SQ) ---
EXAM DESCRIPTION: CHEST SINGLE VIEW COMPLETED DATE/TIME: 12/05/2016 5:39 pm REASON FOR STUDY: central line placement COMPARISON: 12/01/2016 EXAM PARAMETERS: NUMBER OF VIEWS: One view. TECHNIQUE: Single frontal radiographic view of the chest acquired. RADIATION DOSE: NA LIMITATIONS: None. FINDINGS: LUNGS AND PLEURA: Increased densities noted in the lateral right lung base which could rep resent a new area of atelectasis versus infiltrate. MEDIASTINUM AND HILAR STRUCTURES: No masses. Contour normal. HEART AND VASCULAR STRUCTURES: Heart normal in size. Normal vasculature. BONES: No acute findings. HARDWARE: Right IJ central venous catheter tip projecting over the distal SVC/proximal right atrium. EKG leads overlie the chest. The NG tube is unchanged in position. OTHER: No other significant finding. IMPRESSION: No pneumothorax post right IJ central venous catheter placement. There is increased den sity seen in the left lateral lung base which could represent atelectasis versus developing infiltrat e. TECHNICAL DOCUMENTATION: JOB ID: [id number]
[2016-12-05] MEDS: INSULIN GLARGINE,HUM.REC.ANLOG 300 UNIT/3 ML INSULN.PEN SUBCUT SCH (17:56)
[2016-12-05] MEDS ORDERED: AZTREONAM 2 GM in DEXTROSE 5%-WATER 100 ML IV SCH (18:00)
[2016-12-05 18:16] LABS: ANION GAP 14 (5-19); BLOOD UREA NITROGEN 13 mg/dL (7-20); CALCIUM 7.2 mg/dL (8.4-10.2); CARBON DIOXIDE 17 mmol/L (22-30); CHLORIDE 109 mmol/L (98-107); GLUCOSE 211 mg/dL (75-110); MAGNESIUM 1.3 mg/dL (1.6-2.3); POTASSIUM 3.5 mmol/L (3.6-5.0); SODIUM 140.3 mmol/L (137-145)
[2016-12-05] MEDS: HYDROMORPHONE HCL INJ/PF 2 MG/ML AMPULE IV PRN ×2 (18:21→23:14)
[2016-12-05] MEDS: POTASSI CL 20 MEQ/NS 1L 1,000 ML IV PRN (18:21)
[2016-12-05] MEDS ORDERED: CEFEPIME INJ 1 GM VIAL IV PRN (18:49)
[2016-12-05] MEDS ORDERED: CEFEPIME 1 GM/D5W RTU 2 GM/100 ML RTUPB IV ONE (18:58)
[2016-12-05] MEDS ORDERED: CEFEPIME 1 GM/D5W RTU 1 GM/50 ML RTUPB IV ONE (19:00)
[2016-12-05 19:20] LABS: APPEARANCE,URINE CLEAR; BILIRUBIN,URINE NEGATIVE (NEGATIVE); GLUCOSE, URINE >=500 mg/dL (NEGATIVE); KETONES,URINE 80 mg/dL (NEGATIVE); LEUKOCYTE ESTERASE,URINE TRACE (NEGATIVE); NITRITE,URINE NEGATIVE (NEGATIVE); PROTEIN,URINE 100 mg/dL (NEGATIVE); URINE SPECIFIC GRAVITY 1.027; UROBILINOGEN,URINE NEGATIVE mg/dL (<2.0)
[2016-12-05] MEDS ORDERED: NOREPINEPHRINE BITARTRATE INJ/PF 4 MG/4 ML SDV IV PRN (19:26)
[2016-12-05] MEDS: FAMOTIDINE INJ/PF 20 MG/2 ML SDV IV SCH (21:14)
[2016-12-05] MEDS: METRONIDAZOLE 500 MG/NS RTU 100 ML IV SCH (21:15)
[2016-12-05] MEDS ORDERED: ENOXAPARIN SODIUM INJ 40 MG/0.4 ML DISP.SYRIN SUBCUT ONE ×2 (22:00)
[2016-12-05] MEDS ORDERED: CIPROFLOXACIN 400 MG/D5W RTU 400 MG/200 ML RTUPB IV SCH (22:00)
[2016-12-05] MEDS: INSULIN LISPRO 100 UNIT/ML 3 ML VIAL SUBCUT PRN (23:14)
[2016-12-06] MEDS ORDERED: NOREPINEPHRINE BITARTRATE INJ/PF 4 MG/4 ML SDV IV ONE (00:06)
[2016-12-06] MEDS: HYDROMORPHONE HCL INJ/PF 2 MG/ML AMPULE IV PRN ×4 (02:48→16:33)
[2016-12-06] MEDS: POTASSI CL 20 MEQ/NS 1L 1,000 ML IV PRN ×2 (03:35→16:33)
[2016-12-06] MEDS ORDERED: AZTREONAM INJ 1 GM VIAL IV SCH (06:00)
[2016-12-06] MEDS ORDERED: CEFEPIME 1 GM/D5W RTU 1 GM/50 ML RTUPB IV SCH ×2 (06:00→10:00)
[2016-12-06] MEDS: METRONIDAZOLE 500 MG/NS RTU 100 ML IV SCH ×3 (06:09→21:37)
[2016-12-06 06:34] LABS: HEMATOCRIT 34.9 % (36.0-47.0); HEMOGLOBIN 11.1 g/dL (12.0-15.5); HGB HCT DIFFERENCE -1.6; MEAN CORPUSCULAR HEMOGLOBIN 28.4 pg (27.0-33.4); MEAN CORPUSCULAR HGB CONC 31.7 g/dL (32.0-36.0); MEAN CORPUSCULAR VOLUME 89 fl (80-97); WHITE BLOOD COUNT 20.6 10^3/uL (4.0-10.5)
[2016-12-06 06:46] LABS: ALANINE AMINOTRANSFERASE 30 U/L (9-52); ALBUMIN 1.9 g/dL (3.5-5.0); ALKALINE PHOSPHATASE 140 U/L (38-126); ANION GAP 16 (5-19); ASPARTATE AMINO TRANSFERASE 19 U/L (14-36); BILIRUBIN,DIRECT 0.4 mg/dL (0.0-0.4); BILIRUBIN,TOTAL 0.5 mg/dL (0.2-1.3); BLOOD UREA NITROGEN 13 mg/dL (7-20); CALCIUM 7.3 mg/dL (8.4-10.2); CARBON DIOXIDE 16 mmol/L (22-30); CHLORIDE 109 mmol/L (98-107); GLUCOSE 217 mg/dL (75-110); MAGNESIUM 1.4 mg/dL (1.6-2.3); POTASSIUM 3.7 mmol/L (3.6-5.0); SODIUM 140.6 mmol/L (137-145); TOTAL PROTEIN 4.6 g/dL (6.3-8.2)
[2016-12-06 06:54] LABS: BAND NEUTROPHILS % (MANUAL) 2 % (3-5); BASOPHILS % (MANUAL) 1 % (0-2); EOSINOPHILS % (MANUAL) 0 % (0-6); LYMPHOCYTES % (MANUAL) 2 % (13-45); TOTAL CELLS COUNTED 100
[2016-12-06 06:57] LABS: ANISOCYTOSIS SLIGHT; BURR CELLS SLIGHT; POIKILOCYTOSIS SLIGHT; POLYCHROMASIA SLIGHT
[2016-12-06] MEDS: INSULIN LISPRO 100 UNIT/ML 3 ML VIAL SUBCUT PRN (07:03)
[2016-12-06] MEDS ORDERED: MAGNESIUM SULFATE/D5W 1 GM/100 ML RTUPB IV ONE (08:30)
[2016-12-06] MEDS: CEFEPIME HCL 1 GM in DEXTROSE 5%-WATER 50 ML IV SCH ×2 (09:33→21:36)
[2016-12-06] MEDS: FAMOTIDINE INJ/PF 20 MG/2 ML SDV IV SCH ×2 (09:34→21:36)
[2016-12-06] MEDS ORDERED: ENOXAPARIN SODIUM INJ 40 MG/0.4 ML DISP.SYRIN SUBCUT SCH ×2 (10:00)
[2016-12-06] MEDS ORDERED: ENOXAPARIN SODIUM INJ 40 MG/0.4 ML DISP.SYRIN SUBCUT ONE (10:45)
[2016-12-06] MEDS: INSULIN GLARGINE,HUM.REC.ANLOG 300 UNIT/3 ML INSULN.PEN SUBCUT SCH (11:20)
--- NOTE | 2016-12-06 16:32 | PDOC PROGRESS REPORT ---
Subjective Progress Note for:: 12/06/16 Subjective:: Patient is feeling much better today. She has some abdominal soreness but nothing of significance considering her recent surgery. She denies fever, chills, shortness of breath, nausea, vomiting. She has no bowel movement or flatus at the time of my evaluation. Physical Exam Vital Signs: Temp Pulse Resp BP Pulse Ox 98.2 F 115 H 21 H 93/71 L 94 12/06/16 11:35 12/06/16 12:15 12/06/16 15:15 12/06/16 11:20 12/06/16 12:00 Intake & Output 12/05/16 12/06/16 12/07/16 06:59 06:59 06:59 Intake Total 37699 Output Total 8285 120 Balance 4329 -120 Weight 91.6 kg GENERAL: No acute distress HEENT: Conjunctiva clear, nonicteric, moist mucous membranes, no JVD, midline trachea. NG tube in place RESPIRATORY: Clear to auscultation bilaterally, no wheezes, no rhonchi CARDIAC: Regular rate and rhythm, no murmurs/gallops/rubs ABDOMEN: Soft, nondistended, appropriately tender for postoperative state, positive bowel sounds, no rebound, no guarding EXTREMETIES: No edema, cyanosis, clubbing NEUROLOGIC: Alert, oriented to person/place/time, CN's grossly intact, no focal deficits SKIN: Mid abdominal incision with no sign of infection PSYCH: Normal mood, normal affect Results Laboratory Results: 12/06/16 06:15 12/06/16 06:15 12/05/16 12/05/16 12/05/16 17:50 17:50 18:37 WBC RBC Hgb Hct MCV MCH MCHC RDW Plt Count Seg Neutrophils % Lymphocytes % Monocytes % Eosinophils % Basophils % Absolute Neutrophils Absolute Lymphocytes Absolute Monocytes Absolute Eosinophils Absolute Basophils Sodium 140.3 Potassium 3.5 L Chloride 109 H Carbon Dioxide 17 L Anion Gap 14 BUN 13 Creatinine 0.70 Est GFR ( Amer) > 60 Est GFR (Non-Af Amer) > 60 Glucose 211 H Lactic Acid 0.9 Calcium 7.2 L Magnesium 1.3 L Total Bilirubin AST ALT Alkaline Phosphatase Total Protein Albumin Urine Color YELLOW Urine Appearance CLEAR Urine pH 6.0 Ur Specific [place] 1.027 Urine Protein 100 H Urine Glucose (UA) >=500 H Urine Ketones 80 H Urine Blood NEGATIVE Urine Nitrite NEGATIVE Ur Leukocyte Esterase TRACE H Urine WBC (Auto) 11 Urine RBC (Auto) 1 12/06/16 12/06/16 06:15 06:15 WBC 20.6 H RBC 3.90 Hgb 11.1 L Hct 34.9 L MCV 89 MCH 28.4 MCHC 31.7 L RDW 14.0 Plt Count 186 Seg Neutrophils % Not Reportable Lymphocytes % Not Reportable Monocytes % Not Reportable Eosinophils % Not Reportable Basophils % Not Reportable Absolute Neutrophils Not Reportable Absolute Lymphocytes Not Reportable Absolute Monocytes Not Reportable Absolute Eosinophils Not Reportable Absolute Basophils Not Reportable Sodium 140.6 Potassium 3.7 Chloride 109 H Carbon Dioxide 16 L Anion Gap 16 BUN 13 Creatinine 0.70 Est GFR ( Amer) > 60 Est GFR (Non-Af Amer) > 60 Glucose 217 H Lactic Acid Calcium 7.3 L Magnesium 1.4 L Total Bilirubin 0.5 AST 19 ALT 30 Alkaline Phosphatase 140 H Total Protein 4.6 L Albumin 1.9 L Urine Color Urine Appearance Urine pH Ur Specific [place] Urine Protein Urine Glucose (UA) Urine Ketones Urine Blood Urine Nitrite Ur Leukocyte Esterase Urine WBC (Auto) Urine RBC (Auto) Impressions: Chest X-Ray 12/05/16 00:00 IMPRESSION: No pneumothorax post right IJ central venous catheter placement. There is increased density seen in the left lateral lung base which could represent atelectasis versus developing infiltrate. Abdomen/Pelvis CT 12/05/16 01:31 IMPRESSION: 1. Small bowel obstruction pattern. Small ascites. 2. Small bilateral lower lobar pneumonia/atelectasis, left more than right. 3. Indeterminate complex 2.6 cm cystic mass of the left kidney ; recommend dynamic contrast CT (or MRI) of the kidneys. KUB X-Ray 12/05/16 08:08 IMPRESSION: Nasogastric tube tip in the stomach. Assessment & Plan - Diagnosis (1) Septic shock Is this a current diagnosis for this admission?: YesPlan: Associated with peritonitis noted from perforated cecum. Blood pressure now stable off pressors. Continue broad-spectrum antibiotic coverage. (2) Peritonitis Is this a current diagnosis for this admission?: YesPlan: Continue IV cefepime, IV Levaquin, IV metronidazole. (3) SBO (small bowel obstruction) Is this a current diagnosis for this admission?: YesPlan: N.p.o., IV fluid, NG tube. As needed pain and nausea medicines. Status post exploratory laparotomy, bowel resection and primary reanastomosis on 12/05/2016. Surgery managing. (4) Diabetes Qualifiers: Diabetes mellitus type: type 2 Diabetes mellitus long term care administrator insulin use : without long term care administrator use Is this a current diagnosis for this admission?: YesPlan: It should be noted that patient has type 2 diabetes and does not have DKA. Previous documentation indicates type 1 diabetes with DKA. Her acidosis is likely secondary to acute intra-abdominal process. Continue Lantus and sliding scale insulin. (5) Abnormal CT scan, kidney Is this a current diagnosis for this admission?: YesPlan: Once patient is feeling a little bit better check MRI of the abdomen to further evaluate 2.6 cm left renal complex cyst. (6) Basal pneumonia of both lungs Is this a current diagnosis for this admission?: Yes (7) Hypokalemia Is this a current diagnosis for this admission?: Yes (8) Hypomagnesemia Is this a current diagnosis for this admission?: YesPlan: Replaced - Time Time Spent with patient: 35 or more minutes
--- NOTE | 2016-12-06 18:04 | PDOC PROGRESS REPORT ---
Subjective Progress Note for:: 12/06/16 Subjective:: Patient is 1 day status post exploratory laparotomy, small bowel resection by Dr. Cruz. She is doing well, blood pressure now stabilized. Kenney catheter removed, with patient voiding. Physical Exam Vital Signs: Temp Pulse Resp BP Pulse Ox 98.6 F 116 H 17 95/58 L 94 12/06/16 16:00 12/06/16 16:00 12/06/16 16:00 12/06/16 16:00 12/06/16 16:00 Intake & Output 12/05/16 12/06/16 12/07/16 06:59 06:59 06:59 Intake Total 90682 Output Total 8285 120 Balance 4329 -120 Weight 91.6 kg General appearance: PRESENT: mild distress Eye exam: PRESENT: EOMI GI/Abdominal exam: PRESENT: other - Abdomen is appropriately tender. Dressing with some drainage. To be replaced. Results Laboratory Results: 12/06/16 06:15 12/06/16 06:15 12/05/16 12/05/16 12/05/16 17:50 17:50 18:37 WBC RBC Hgb Hct MCV MCH MCHC RDW Plt Count Seg Neutrophils % Lymphocytes % Monocytes % Eosinophils % Basophils % Absolute Neutrophils Absolute Lymphocytes Absolute Monocytes Absolute Eosinophils Absolute Basophils Sodium 140.3 Potassium 3.5 L Chloride 109 H Carbon Dioxide 17 L Anion Gap 14 BUN 13 Creatinine 0.70 Est GFR ( Amer) > 60 Est GFR (Non-Af Amer) > 60 Glucose 211 H Lactic Acid 0.9 Calcium 7.2 L Magnesium 1.3 L Total Bilirubin AST ALT Alkaline Phosphatase Total Protein Albumin Urine Color YELLOW Urine Appearance CLEAR Urine pH 6.0 Ur Specific [place] 1.027 Urine Protein 100 H Urine Glucose (UA) >=500 H Urine Ketones 80 H Urine Blood NEGATIVE Urine Nitrite NEGATIVE Ur Leukocyte Esterase TRACE H Urine WBC (Auto) 11 Urine RBC (Auto) 1 12/06/16 12/06/16 06:15 06:15 WBC 20.6 H RBC 3.90 Hgb 11.1 L Hct 34.9 L MCV 89 MCH 28.4 MCHC 31.7 L RDW 14.0 Plt Count 186 Seg Neutrophils % Not Reportable Lymphocytes % Not Reportable Monocytes % Not Reportable Eosinophils % Not Reportable Basophils % Not Reportable Absolute Neutrophils Not Reportable Absolute Lymphocytes Not Reportable Absolute Monocytes Not Reportable Absolute Eosinophils Not Reportable Absolute Basophils Not Reportable Sodium 140.6 Potassium 3.7 Chloride 109 H Carbon Dioxide 16 L Anion Gap 16 BUN 13 Creatinine 0.70 Est GFR ( Amer) > 60 Est GFR (Non-Af Amer) > 60 Glucose 217 H Lactic Acid Calcium 7.3 L Magnesium 1.4 L Total Bilirubin 0.5 AST 19 ALT 30 Alkaline Phosphatase 140 H Total Protein 4.6 L Albumin 1.9 L Urine Color Urine Appearance Urine pH Ur Specific [place] Urine Protein Urine Glucose (UA) Urine Ketones Urine Blood Urine Nitrite Ur Leukocyte Esterase Urine WBC (Auto) Urine RBC (Auto) Impressions: Chest X-Ray 12/05/16 00:00 IMPRESSION: No pneumothorax post right IJ central venous catheter placement. There is increased density seen in the left lateral lung base which could represent atelectasis versus developing infiltrate. Abdomen/Pelvis CT 12/05/16 01:31 IMPRESSION: 1. Small bowel obstruction pattern. Small ascites. 2. Small bilateral lower lobar pneumonia/atelectasis, left more than right. 3. Indeterminate complex 2.6 cm cystic mass of the left kidney ; recommend dynamic contrast CT (or MRI) of the kidneys. KUB X-Ray 12/05/16 08:08 IMPRESSION: Nasogastric tube tip in the stomach. Assessment & Plan - Diagnosis (1) SBO (small bowel obstruction) Is this a current diagnosis for this admission?: YesPlan: 1. Patient is doing well 1 day status post exploratory laparotomy, small bowel resection for complete internal obstruction. Plan: 1. Keep nasogastric tube in position 2. May transfer to floor 3. Monitor urine output.
[2016-12-06] MEDS: LEVOFLOXACIN 750 MG/D5W RTU 750 MG/150 ML RTUPB IV SCH (18:11)
[2016-12-07] MEDS: HYDROMORPHONE HCL INJ/PF 2 MG/ML AMPULE IV PRN (00:15)
[2016-12-07] MEDS: POTASSI CL 20 MEQ/NS 1L 1,000 ML IV PRN ×3 (03:11→23:16)
[2016-12-07] MEDS: METRONIDAZOLE 500 MG/NS RTU 100 ML IV SCH ×2 (06:55→14:30)
--- NOTE | 2016-12-07 07:02 | RADIOLOGY REPORT (SQ) ---
EXAM DESCRIPTION: CHEST SINGLE VIEW COMPLETED DATE/TIME: 12/07/2016 6:41 am REASON FOR STUDY: PNA COMPARISON: 12/05/2016. EXAM PARAMETERS: NUMBER OF VIEWS: One view. TECHNIQUE: Single frontal radiographic view of the chest acquired. RADIATION DOSE: NA LIMITATIONS: None. FINDINGS: LUNGS AND PLEURA: Moderate lung volumes. Small left basilar streakiness -patchiness. Sma ll right basilar streakiness. MEDIASTINUM AND HILAR STRUCTURES: No masses. Contour normal. HEART AND VASCULAR STRUCTURES: Heart normal in size. Normal vasculature. BONES: No acute findings. HARDWARE: Right IJ central line tip at the cavoatrial junction. Adequate appearing nasogastric tube. OTHER: No other significant finding. IMPRESSION: No significant interval change includes bibasilar streakiness. Lines and tubes. TECHNICAL DOCUMENTATION: JOB ID: [id number]
[2016-12-07 07:28] LABS: HEMATOCRIT 32.8 % (36.0-47.0); HEMOGLOBIN 10.5 g/dL (12.0-15.5); HGB HCT DIFFERENCE -1.3; MEAN CORPUSCULAR HEMOGLOBIN 28.8 pg (27.0-33.4); MEAN CORPUSCULAR HGB CONC 32.1 g/dL (32.0-36.0); MEAN CORPUSCULAR VOLUME 90 fl (80-97); RED BLOOD COUNT 3.65 10^6/uL (3.72-5.28); RED CELL DISTRIBUTION WIDTH 14.1 % (11.5-14.0); WHITE BLOOD COUNT 16.8 10^3/uL (4.0-10.5)
[2016-12-07 07:48] LABS: BAND NEUTROPHILS % (MANUAL) 2 % (3-5); BASOPHILS % (MANUAL) 0 % (0-2); EOSINOPHILS % (MANUAL) 1 % (0-6); LYMPHOCYTES % (MANUAL) 4 % (13-45); TOTAL CELLS COUNTED 100
[2016-12-07 07:50] LABS: ANION GAP 13 (5-19); ANISOCYTOSIS SLIGHT; BLOOD UREA NITROGEN 10 mg/dL (7-20); CALCIUM 7.4 mg/dL (8.4-10.2); CARBON DIOXIDE 17 mmol/L (22-30); CHLORIDE 111 mmol/L (98-107); CREATININE RESULT 0.59 mg/dL (0.52-1.25); GLUCOSE 179 mg/dL (75-110); MAGNESIUM 1.7 mg/dL (1.6-2.3); POTASSIUM 3.4 mmol/L (3.6-5.0); SODIUM 140.8 mmol/L (137-145); TOXIC GRANULATION 1+
[2016-12-07] MEDS ORDERED: PIPERACILLIN SODIUM/TAZOBACTAM 4.5 GM in NORMAL SALINE 100 ML IV SCH (08:00)
--- NOTE | 2016-12-07 11:23 | PROGRESS NOTE E ---
Progress Note NAME: ETRRANCE KLEIN : 1955 AGE: 61Y DATE: 12/07/2016 ROOM: 603 This is patient's postop day #2. Patient able to pass flatus this morning and the NG tube drainage has decreased. Her abdomen is soft and the dressing is dry. She is still slightly tachycardic at 112 per minute, but the rest of the vital signs are normal. She is afebrile. Her white count this morning is 16.8 from 20.6 yesterday. Plan is to discontinue NG tube and Kenney and get her ambulating. Start her on clear liquids and continue IV antibiotics. DICTATING PHYSICIAN: LETICIA SWEENEY M.D. [id number] PHY#: [id number] ID: [id number] JOB#: [id number] ACCT: [id number] cc: >
[2016-12-07] MEDS: ENOXAPARIN SODIUM INJ 40 MG/0.4 ML DISP.SYRIN SUBCUT SCH (11:38)
[2016-12-07] MEDS: POTASSI CL 20 MEQ/50 ML RIDER 20 MEQ/50 ML RTUPB IV SCH ×2 (11:38→13:58)
[2016-12-07] MEDS: INSULIN GLARGINE,HUM.REC.ANLOG 300 UNIT/3 ML INSULN.PEN SUBCUT SCH (11:39)
[2016-12-07] MEDS: MAGNESIUM SULFATE/D5W 1 GM/100 ML RTUPB IV SCH ×2 (11:40→13:55)
[2016-12-07] MEDS: PIPERACILLIN SODIUM/TAZOBACTAM 4.5 GM in NORMAL SALINE 100 ML IV SCH ×3 (11:40→21:13)
[2016-12-07] MEDS: FAMOTIDINE INJ/PF 20 MG/2 ML SDV IV SCH ×2 (11:41→21:13)
[2016-12-07] MEDS: NORMAL SALINE INJ/PF 0.9% 10 ML SDV IV PRN (13:58)
--- NOTE | 2016-12-07 17:38 | PDOC PROGRESS REPORT ---
Subjective Progress Note for:: 12/07/16 Subjective:: Reports she is feeling significantly better today. She reports several bowel movements as well as the passage of flatus. Patient denies chest pain, fever, chills, shortness of breath, nausea, vomiting, new onset weakness, headache. Physical Exam Vital Signs: Temp Pulse Resp BP Pulse Ox 97.6 F 110 H 19 106/57 L 95 12/07/16 04:00 12/07/16 00:00 12/07/16 07:00 12/07/16 03:17 12/07/16 03:17 Intake & Output 12/06/16 12/07/16 12/08/16 06:59 06:59 06:59 Intake Total 44930 2413 Output Total 8285 1020 Balance 4329 1393 Weight 91.6 kg Exam: GENERAL: No acute distress HEENT: Conjunctiva clear, nonicteric, moist mucous membranes, no JVD, midline trachea. NG tube in place RESPIRATORY: Clear to auscultation bilaterally, no wheezes, no rhonchi CARDIAC: Regular rate and rhythm, no murmurs/gallops/rubs ABDOMEN: Soft, nondistended, nttp, positive bowel sounds, no rebound, no guarding EXTREMETIES: No edema, cyanosis, clubbing NEUROLOGIC: Alert, oriented to person/place/time, CN's grossly intact, no focal deficits SKIN: Midline abdominal incision with no sign of infection PSYCH: Normal mood, normal affect Results Laboratory Results: 12/07/16 06:15 12/07/16 06:15 WBC 16.8 H RBC 3.65 L Hgb 10.5 L Hct 32.8 L MCV 90 MCH 28.8 MCHC 32.1 RDW 14.1 H Plt Count 222 Seg Neutrophils % Not Reportable Lymphocytes % Not Reportable Monocytes % Not Reportable Eosinophils % Not Reportable Basophils % Not Reportable Absolute Neutrophils Not Reportable Absolute Lymphocytes Not Reportable Absolute Monocytes Not Reportable Absolute Eosinophils Not Reportable Absolute Basophils Not Reportable Impressions: Abdomen/Pelvis CT 12/05/16 01:31 IMPRESSION: 1. Small bowel obstruction pattern. Small ascites. 2. Small bilateral lower lobar pneumonia/atelectasis, left more than right. 3. Indeterminate complex 2.6 cm cystic mass of the left kidney ; recommend dynamic contrast CT (or MRI) of the kidneys. KUB X-Ray 12/05/16 08:08 IMPRESSION: Nasogastric tube tip in the stomach. Chest X-Ray 12/07/16 06:00 IMPRESSION: No significant interval change includes bibasilar streakiness. Lines and tubes. Assessment & Plan - Diagnosis (1) Septic shock Is this a current diagnosis for this admission?: YesPlan: Patient is currently off of pressors. Flagyl. Will stop Flagyl. Secondary peritonitis. (2) Dehydration Is this a current diagnosis for this admission?: YesPlan: Secondary to sepsis and DKA, improved (3) Hypomagnesemia Is this a current diagnosis for this admission?: YesPlan: replete and recheck (4) Metabolic acidosis Is this a current diagnosis for this admission?: YesPlan: Seoncdary to DKA and sepsis (5) Peritonitis Is this a current diagnosis for this admission?: YesPlan: On Zosyn (6) SBO (small bowel obstruction) Is this a current diagnosis for this admission?: YesPlan: Defer problems relating to small bowel obstruction, abdominal pain and its diagnoses, and all complications to the surgical team. (7) DKA (diabetic ketoacidoses) Qualifiers: Diabetes mellitus type: type 1 Diabetes mellitus complication detail: without coma Qualified Code(s): E10.10 - Type 1 diabetes mellitus with ketoacidosis without coma Is this a current diagnosis for this admission?: YesPlan: Has resolved. Patient will transition to clear liquids today and will continue her home NPH and sliding scale. (8) Diabetes mellitus type 1, uncontrolled Qualifiers: Diabetes mellitus complication status: without complication Qualified Code(s): E10.9 - Type 1 diabetes mellitus without complications Is this a current diagnosis for this admission?: Yes (9) Urinary tract infection Qualifiers: Urinary tract infection type: acute cystitis Hematuria presence: without hematuria Qualified Code(s): N30.00 - Acute cystitis without hematuria Is this a current diagnosis for this admission?: YesPlan: Apparent UTI on admission. Will send urine culture. Patient on Zosyn. (10) Basal pneumonia of both lungs Is this a current diagnosis for this admission?: YesPlan: Likely secondary to aspiration. Concern for gram-negative organisms. Patient on Zosyn and scheduled treatments. - Time Time Spent with patient: 35 or more minutes Medications reviewed and adjusted accordingly: Yes
[2016-12-08] MEDS: PIPERACILLIN SODIUM/TAZOBACTAM 4.5 GM in NORMAL SALINE 100 ML IV SCH ×4 (03:54→20:53)
[2016-12-08] MEDS: POTASSI CL 20 MEQ/NS 1L 1,000 ML IV PRN (05:57)
[2016-12-08 07:49] LABS: HEMATOCRIT 33.4 % (36.0-47.0); HGB HCT DIFFERENCE -0.4; MEAN CORPUSCULAR HEMOGLOBIN 28.6 pg (27.0-33.4); MEAN CORPUSCULAR HGB CONC 32.8 g/dL (32.0-36.0); MEAN CORPUSCULAR VOLUME 87 fl (80-97); RED BLOOD COUNT 3.83 10^6/uL (3.72-5.28); RED CELL DISTRIBUTION WIDTH 13.8 % (11.5-14.0); WHITE BLOOD COUNT 12.4 10^3/uL (4.0-10.5)
[2016-12-08 08:13] LABS: ALANINE AMINOTRANSFERASE 33 U/L (9-52); ALKALINE PHOSPHATASE 230 U/L (38-126); ANION GAP 9 (5-19); ASPARTATE AMINO TRANSFERASE 17 U/L (14-36); BILIRUBIN,DIRECT 0.4 mg/dL (0.0-0.4); BILIRUBIN,TOTAL 0.4 mg/dL (0.2-1.3); BLOOD UREA NITROGEN 6 mg/dL (7-20); CALCIUM 7.5 mg/dL (8.4-10.2); CARBON DIOXIDE 20 mmol/L (22-30); CHLORIDE 107 mmol/L (98-107); CREATININE RESULT 0.57 mg/dL (0.52-1.25); GLUCOSE 107 mg/dL (75-110); MAGNESIUM 1.8 mg/dL (1.6-2.3); POTASSIUM 3.2 mmol/L (3.6-5.0)
[2016-12-08] MEDS ORDERED: POTASSIUM CHLORIDE 10 MEQ TABLET.SA PO ONE (09:54)
[2016-12-08] MEDS: MAGNESIUM SULFATE/D5W 1 GM/100 ML RTUPB IV SCH ×3 (10:20→14:19)
[2016-12-08] MEDS: FAMOTIDINE INJ/PF 20 MG/2 ML SDV IV SCH ×2 (10:20→22:16)
[2016-12-08] MEDS: ENOXAPARIN SODIUM INJ 40 MG/0.4 ML DISP.SYRIN SUBCUT SCH (10:21)
[2016-12-08] MEDS: POTASSI CL 20 MEQ/50 ML RIDER 20 MEQ/50 ML RTUPB IV SCH ×3 (10:21→15:39)
[2016-12-08] MEDS: HYDROMORPHONE HCL INJ/PF 2 MG/ML AMPULE IV PRN ×2 (10:44→20:39)
[2016-12-08] MEDS ORDERED: HYDROMORPHONE HCL INJ/PF 2 MG/ML AMPULE IV PRN (11:30)
[2016-12-08] MEDS: INSULIN GLARGINE,HUM.REC.ANLOG 300 UNIT/3 ML INSULN.PEN SUBCUT SCH (11:49)
--- NOTE | 2016-12-08 13:28 | PROGRESS NOTE E ---
Progress Note NAME: TERRANCE KLEIN : 1955 AGE: 61Y DATE: 12/08/2016 ROOM: 603 SUBJECTIVE: This is her third postop day. She is continuing to pass flatus and a bowel movement. She is hungry. OBJECTIVE: ABDOMEN: Is soft. The Telfa mae were removed. However, she has some clear serous drainage from the bottom part of the incision. DIAGNOSTICS: Her white count has gone down to 12.4 from 16.8 two days ago. PLAN: Is to continue with IV antibiotics. Increase her diet to full liquids, and cut back on the IV fluids. We will continue her for another day in the ICU. DICTATING PHYSICIAN: LETICIA SWEENEY M.D. [id number] PHY#: [id number] ID: [id number] JOB#: [id number] ACCT: [id number] cc: >
--- NOTE | 2016-12-08 18:36 | PDOC PROGRESS REPORT ---
Subjective Progress Note for:: 12/08/16 Subjective:: Reports she is feeling significantly better today. She reports ambulating, bowel movements. Patient denies chest pain, fever, chills, shortness of breath , nausea, vomiting, new onset weakness, headache. Patient seen earlier today on morning rounds with her family at bedside. Physical Exam Vital Signs: Temp Pulse Resp BP Pulse Ox 97.5 F 99 16 123/81 98 12/08/16 16:00 12/08/16 16:00 12/08/16 16:00 12/08/16 16:00 12/08/16 16:00 Intake & Output 12/07/16 12/08/16 12/09/16 06:59 06:59 06:59 Intake Total 2413 4079 400 Output Total 1020 0 Balance 1393 4079 400 Exam: GENERAL: No acute distress HEENT: Conjunctiva clear, nonicteric, moist mucous membranes, no JVD, midline trachea. RESPIRATORY: Clear to auscultation bilaterally, no wheezes, no rhonchi CARDIAC: Regular rate and rhythm, no murmurs/gallops/rubs ABDOMEN: Soft, nondistended, nttp, positive bowel sounds, no rebound, no guarding EXTREMETIES: No cyanosis, clubbing; trace edema NEUROLOGIC: Alert, oriented to person/place/time, CN's grossly intact, no focal deficits SKIN: Midline abdominal incision with no sign of infection PSYCH: Normal mood, normal affect Results Laboratory Results: 12/08/16 07:20 12/08/16 07:20 12/08/16 12/08/16 07:20 07:20 WBC 12.4 H RBC 3.83 Hgb 11.0 L Hct 33.4 L MCV 87 MCH 28.6 MCHC 32.8 RDW 13.8 Plt Count 272 Sodium 136.0 L Potassium 3.2 L Chloride 107 Carbon Dioxide 20 L Anion Gap 9 BUN 6 L Creatinine 0.57 Est GFR ( Amer) > 60 Est GFR (Non-Af Amer) > 60 Glucose 107 Calcium 7.5 L Magnesium 1.8 Total Bilirubin 0.4 AST 17 ALT 33 Alkaline Phosphatase 230 H Total Protein 5.0 L Albumin 2.0 L Impressions: Abdomen/Pelvis CT 12/05/16 01:31 IMPRESSION: 1. Small bowel obstruction pattern. Small ascites. 2. Small bilateral lower lobar pneumonia/atelectasis, left more than right. 3. Indeterminate complex 2.6 cm cystic mass of the left kidney ; recommend dynamic contrast CT (or MRI) of the kidneys. KUB X-Ray 12/05/16 08:08 IMPRESSION: Nasogastric tube tip in the stomach. Chest X-Ray 12/07/16 06:00 IMPRESSION: No significant interval change includes bibasilar streakiness. Lines and tubes. Assessment & Plan - Diagnosis (1) Urinary tract infection Qualifiers: Urinary tract infection type: acute cystitis Hematuria presence: without hematuria Qualified Code(s): N30.00 - Acute cystitis without hematuria Is this a current diagnosis for this admission?: YesPlan: Apparent UTI on admission. Pending urine culture. Patient on Zosyn. (2) Basal pneumonia of both lungs Is this a current diagnosis for this admission?: YesPlan: Likely secondary to aspiration. Concern for gram-negative organisms. Patient on Zosyn and scheduled treatments. (3) Septic shock Is this a current diagnosis for this admission?: YesPlan: Patient is currently off of pressors. Secondary peritonitis. Continues on Zosyn. Doing well. (4) Peritonitis Is this a current diagnosis for this admission?: YesPlan: On Zosyn (5) Dehydration Is this a current diagnosis for this admission?: Yes (6) Hypomagnesemia Is this a current diagnosis for this admission?: Yes (7) Metabolic acidosis Is this a current diagnosis for this admission?: Yes (8) SBO (small bowel obstruction) Is this a current diagnosis for this admission?: YesPlan: Defer problems relating to small bowel obstruction, abdominal pain and its diagnoses, and all complications to the surgical team. (9) DKA (diabetic ketoacidoses) Qualifiers: Diabetes mellitus type: type 1 Diabetes mellitus complication detail: without coma Qualified Code(s): E10.10 - Type 1 diabetes mellitus with ketoacidosis without coma Is this a current diagnosis for this admission?: YesPlan: Has resolved. Controlled. Patient will transition to full liquids today and will continue her home NPH and sliding scale. (10) Diabetes mellitus type 1, uncontrolled Qualifiers: Diabetes mellitus complication status: without complication Qualified Code(s): E10.9 - Type 1 diabetes mellitus without complications Is this a current diagnosis for this admission?: Yes - Time Time Spent with patient: 25-34 minutes Medications reviewed and adjusted accordingly: Yes Anticipated discharge: Home with Homehealth Within: within 48 hours - Inpatient Certification Based on my medical assessment, after consideration of the patient's comorbidities, presenting symptoms, or acuity I expect that the services needed warrant INPATIENT care.: Yes I certify that my determination is in accordance with my understanding of Medicare's requirements for reasonable and necessary INPATIENT services [42 CFR 412.3e].: Yes Medical Necessity: Need for Pain Control, Need for IV Antibiotics Post Hospital Care: D/C Director [employer] Documentation
[2016-12-08] MEDS: INSULIN LISPRO 100 UNIT/ML 3 ML VIAL SUBCUT PRN (22:36)
[2016-12-09] MEDS: PIPERACILLIN SODIUM/TAZOBACTAM 4.5 GM in NORMAL SALINE 100 ML IV SCH ×4 (03:54→21:30)
[2016-12-09 06:40] LABS: HEMOGLOBIN 10.8 g/dL (12.0-15.5); HGB HCT DIFFERENCE -0.6; MEAN CORPUSCULAR HEMOGLOBIN 28.9 pg (27.0-33.4); MEAN CORPUSCULAR HGB CONC 32.8 g/dL (32.0-36.0); MEAN CORPUSCULAR VOLUME 88 fl (80-97); RED BLOOD COUNT 3.75 10^6/uL (3.72-5.28); RED CELL DISTRIBUTION WIDTH 13.9 % (11.5-14.0); WHITE BLOOD COUNT 9.7 10^3/uL (4.0-10.5)
[2016-12-09 06:42] LABS: ANION GAP 8 (5-19); BLOOD UREA NITROGEN 4 mg/dL (7-20); CALCIUM 7.2 mg/dL (8.4-10.2); CARBON DIOXIDE 19 mmol/L (22-30); CHLORIDE 108 mmol/L (98-107); CREATININE RESULT 0.59 mg/dL (0.52-1.25); GLUCOSE 184 mg/dL (75-110); POTASSIUM 3.9 mmol/L (3.6-5.0); SODIUM 134.9 mmol/L (137-145)
[2016-12-09 07:02] LABS: BAND NEUTROPHILS % (MANUAL) 3 % (3-5); BASOPHILS % (MANUAL) 0 % (0-2); EOSINOPHILS % (MANUAL) 6 % (0-6); LYMPHOCYTES % (MANUAL) 9 % (13-45); TOTAL CELLS COUNTED 100
[2016-12-09 07:04] LABS: POLYCHROMASIA SLIGHT; SCHISTOCYTES SLIGHT; TEAR DROP CELLS SLIGHT; TOXIC GRANULATION SLIGHT
[2016-12-09] MEDS: INSULIN LISPRO 100 UNIT/ML 3 ML VIAL SUBCUT PRN ×2 (07:52→14:04)
[2016-12-09] MEDS: ENOXAPARIN SODIUM INJ 40 MG/0.4 ML DISP.SYRIN SUBCUT SCH (09:11)
[2016-12-09] MEDS: FAMOTIDINE INJ/PF 20 MG/2 ML SDV IV SCH ×2 (09:13→21:30)
[2016-12-09] MEDS: INSULIN GLARGINE,HUM.REC.ANLOG 300 UNIT/3 ML INSULN.PEN SUBCUT SCH (11:10)
--- NOTE | 2016-12-09 11:34 | PDOC PROGRESS REPORT ---
Subjective Progress Note for:: 12/09/16 Subjective:: Feels well. Having bowel movements. Anxious to start solid diet. Physical Exam Vital Signs: Temp Pulse Resp BP Pulse Ox 97.9 F 102 H 18 127/74 H 99 12/09/16 08:16 12/09/16 08:16 12/09/16 08:16 12/09/16 08:16 12/09/16 08:16 Intake & Output 12/08/16 12/09/16 12/10/16 06:59 06:59 06:59 Intake Total 4079 1916 Output Total 0 1 Balance 4079 1915 General appearance: PRESENT: no acute distress, cooperative Respiratory exam: PRESENT: clear to auscultation henri Cardiovascular exam: PRESENT: RRR GI/Abdominal exam: PRESENT: other - Nondistended, nontender to palpation, soft Results Laboratory Results: 12/09/16 06:00 12/09/16 06:00 12/09/16 12/09/16 12/09/16 00:15 06:00 06:00 WBC 9.7 RBC 3.75 Hgb 10.8 L Hct 33.0 L MCV 88 MCH 28.9 MCHC 32.8 RDW 13.9 Plt Count 295 Seg Neutrophils % Not Reportable Lymphocytes % Not Reportable Monocytes % Not Reportable Eosinophils % Not Reportable Basophils % Not Reportable Absolute Neutrophils Not Reportable Absolute Lymphocytes Not Reportable Absolute Monocytes Not Reportable Absolute Eosinophils Not Reportable Absolute Basophils Not Reportable Sodium 134.9 L Potassium 3.7 3.9 Chloride 108 H Carbon Dioxide 19 L Anion Gap 8 BUN 4 L Creatinine 0.59 Est GFR ( Amer) > 60 Est GFR (Non-Af Amer) > 60 Glucose 184 H Calcium 7.2 L Magnesium 2.0 Impressions: Abdomen/Pelvis CT 12/05/16 01:31 IMPRESSION: 1. Small bowel obstruction pattern. Small ascites. 2. Small bilateral lower lobar pneumonia/atelectasis, left more than right. 3. Indeterminate complex 2.6 cm cystic mass of the left kidney ; recommend dynamic contrast CT (or MRI) of the kidneys. KUB X-Ray 12/05/16 08:08 IMPRESSION: Nasogastric tube tip in the stomach. Chest X-Ray 12/07/16 06:00 IMPRESSION: No significant interval change includes bibasilar streakiness. Lines and tubes. Assessment & Plan - Diagnosis (1) Small bowel obstruction with strangulation or infarction Is this a current diagnosis for this admission?: YesPlan: Status post small bowel and cecal resection. Patient doing very well. Advance her diet. Probable discharge to home tomorrow.
[2016-12-09] MEDS ORDERED: HYDROCODONE/ACETAMINOPHEN 5-325 MG TABLET PO PRN (13:23)
--- NOTE | 2016-12-09 13:53 | PDOC PROGRESS REPORT ---
Subjective Progress Note for:: 12/09/16 Subjective:: Patient reports she is feeling well. She is tolerating her diet. Patient denies fever, chills, chest pain, shortness of breath, nausea, vomiting, abdominal pain , diarrhea. Physical Exam Vital Signs: Temp Pulse Resp BP Pulse Ox 97.9 F 101 H 20 125/68 97 12/09/16 04:00 12/09/16 04:00 12/09/16 04:00 12/09/16 04:00 12/09/16 04:00 Intake & Output 12/08/16 12/09/16 12/10/16 06:59 06:59 06:59 Intake Total 4079 1916 Output Total 0 1 Balance 4079 1915 Exam: GENERAL: No acute distress HEENT: Conjunctiva clear, nonicteric, moist mucous membranes, no JVD, midline trachea. RESPIRATORY: Clear to auscultation bilaterally, no wheezes, no rhonchi CARDIAC: Regular rate and rhythm, no murmurs/gallops/rubs ABDOMEN: Soft, nondistended, nttp, positive bowel sounds, no rebound, no guarding EXTREMETIES: No cyanosis, clubbing; 2+ edema NEUROLOGIC: Alert, oriented to person/place/time, CN's grossly intact, no focal deficits SKIN: Midline abdominal incision with no sign of infection PSYCH: Normal mood, normal affect Results Laboratory Results: 12/09/16 06:00 12/09/16 06:00 12/08/16 12/08/16 12/09/16 07:20 07:20 00:15 WBC 12.4 H RBC 3.83 Hgb 11.0 L Hct 33.4 L MCV 87 MCH 28.6 MCHC 32.8 RDW 13.8 Plt Count 272 Seg Neutrophils % Lymphocytes % Monocytes % Eosinophils % Basophils % Absolute Neutrophils Absolute Lymphocytes Absolute Monocytes Absolute Eosinophils Absolute Basophils Sodium 136.0 L Potassium 3.2 L 3.7 Chloride 107 Carbon Dioxide 20 L Anion Gap 9 BUN 6 L Creatinine 0.57 Est GFR ( Amer) > 60 Est GFR (Non-Af Amer) > 60 Glucose 107 Calcium 7.5 L Magnesium 1.8 Total Bilirubin 0.4 AST 17 ALT 33 Alkaline Phosphatase 230 H Total Protein 5.0 L Albumin 2.0 L 12/09/16 12/09/16 06:00 06:00 WBC 9.7 RBC 3.75 Hgb 10.8 L Hct 33.0 L MCV 88 MCH 28.9 MCHC 32.8 RDW 13.9 Plt Count 295 Seg Neutrophils % Not Reportable Lymphocytes % Not Reportable Monocytes % Not Reportable Eosinophils % Not Reportable Basophils % Not Reportable Absolute Neutrophils Not Reportable Absolute Lymphocytes Not Reportable Absolute Monocytes Not Reportable Absolute Eosinophils Not Reportable Absolute Basophils Not Reportable Sodium 134.9 L Potassium 3.9 Chloride 108 H Carbon Dioxide 19 L Anion Gap 8 BUN 4 L Creatinine 0.59 Est GFR ( Amer) > 60 Est GFR (Non-Af Amer) > 60 Glucose 184 H Calcium 7.2 L Magnesium 2.0 Total Bilirubin AST ALT Alkaline Phosphatase Total Protein Albumin Impressions: Abdomen/Pelvis CT 12/05/16 01:31 IMPRESSION: 1. Small bowel obstruction pattern. Small ascites. 2. Small bilateral lower lobar pneumonia/atelectasis, left more than right. 3. Indeterminate complex 2.6 cm cystic mass of the left kidney ; recommend dynamic contrast CT (or MRI) of the kidneys. KUB X-Ray 12/05/16 08:08 IMPRESSION: Nasogastric tube tip in the stomach. Chest X-Ray 12/07/16 06:00 IMPRESSION: No significant interval change includes bibasilar streakiness. Lines and tubes. Assessment & Plan - Diagnosis (1) Urinary tract infection Qualifiers: Urinary tract infection type: acute cystitis Hematuria presence: without hematuria Qualified Code(s): N30.00 - Acute cystitis without hematuria Is this a current diagnosis for this admission?: YesPlan: Apparent UTI on admission. Pending urine culture. Transition patient to levaquin for one day. (2) Basal pneumonia of both lungs Is this a current diagnosis for this admission?: YesPlan: transition patient to levaquin Treatments as needed. (3) Septic shock Is this a current diagnosis for this admission?: YesPlan: Patient is off of pressors. Secondary peritonitis. Continues on Zosyn. Doing well. (4) Peritonitis Is this a current diagnosis for this admission?: Yes (5) Dehydration Is this a current diagnosis for this admission?: Yes (6) Hypomagnesemia Is this a current diagnosis for this admission?: Yes (7) Metabolic acidosis Is this a current diagnosis for this admission?: YesPlan: Seoncdary to DKA and sepsis (8) SBO (small bowel obstruction) Is this a current diagnosis for this admission?: YesPlan: Defer problems relating to small bowel obstruction, abdominal pain and its diagnoses, and all complications to the surgical team. (9) DKA (diabetic ketoacidoses) Qualifiers: Diabetes mellitus type: type 1 Diabetes mellitus complication detail: without coma Qualified Code(s): E10.10 - Type 1 diabetes mellitus with ketoacidosis without coma Is this a current diagnosis for this admission?: YesPlan: Has resolved. Controlled. Patient will transition to regular diet today and will continue her home NPH and sliding scale. (10) Diabetes mellitus type 1, uncontrolled Qualifiers: Diabetes mellitus complication status: without complication Qualified Code(s): E10.9 - Type 1 diabetes mellitus without complications Is this a current diagnosis for this admission?: Yes - Time Time Spent with patient: 15-24 minutes Medications reviewed and adjusted accordingly: Yes Anticipated discharge: Home Within: within 24 hours
[2016-12-09] MEDS ORDERED: FUROSEMIDE 20 MG TABLET PO ONE (14:00)
[2016-12-09] MEDS: NORMAL SALINE INJ/PF 0.9% 10 ML SDV IV PRN (15:07)
[2016-12-10] MEDS: PIPERACILLIN SODIUM/TAZOBACTAM 4.5 GM in NORMAL SALINE 100 ML IV SCH (03:48)
[2016-12-10] MEDS: ENOXAPARIN SODIUM INJ 40 MG/0.4 ML DISP.SYRIN SUBCUT SCH (09:55)
[2016-12-10] MEDS: FAMOTIDINE INJ/PF 20 MG/2 ML SDV IV SCH (09:55)
[2016-12-10 10:21] VITALS: BP 127/74
--- NOTE | 2016-12-10 10:29 | PROGRESS NOTE E ---
Progress Note NAME: TERRANCE KLEIN : 1955 AGE: 61Y DATE: 12/10/2016 ROOM: 208 SUBJECTIVE: Patient is progressing well. She tolerated her regular diet well. She had a bowel movement. OBJECTIVE: Afebrile and her white count is normal. The wound is clean with some serous drainage on the lower aspect. The abdomen is soft and nontender. PLAN: Patient can be discharged today on p.o. antibiotics. A note was given for her when to go back to work. She should not lift more than 10 pounds for the next 2 weeks and no more than 20-30 pounds for the next 4 weeks, then no restrictions after the sixth week of surgery. She is scheduled to go to the surgical clinic next week. She can be on p.o. antibiotics for the next 3-5 days. She can have a regular diet. DICTATING PHYSICIAN: LETICIA SWEENEY M.D. [id number] PHY#: [id number] ID: [id number] JOB#: [id number] ACCT: [id number] cc: >
[2016-12-10] MEDS ORDERED: AMOXICILLIN TR/POT CLAVULANATE 500-125 MG TAB PO SCH (14:00)
--- NOTE | 2016-12-10 19:29 | PDOC DISCHARGE SUMMARY ---
General - Admit/Disc Date/PCP Admission Date/Primary Care Provider: 12/05/16 08:10 Discharge Date: 12/10/16 - Discharge Diagnosis (1) Septic shock Is this a current diagnosis for this admission?: Yes (2) Peritonitis Is this a current diagnosis for this admission?: Yes (3) Urinary tract infection Is this a current diagnosis for this admission?: Yes (4) Basal pneumonia of both lungs Is this a current diagnosis for this admission?: Yes (5) Dehydration Is this a current diagnosis for this admission?: Yes (6) Hypomagnesemia Is this a current diagnosis for this admission?: Yes (7) Metabolic acidosis Is this a current diagnosis for this admission?: Yes (8) SBO (small bowel obstruction) Is this a current diagnosis for this admission?: Yes (9) DKA (diabetic ketoacidoses) Is this a current diagnosis for this admission?: Yes (10) Diabetes mellitus type 1, uncontrolled Is this a current diagnosis for this admission?: Yes (11) Protein-calorie malnutrition, moderate Is this a current diagnosis for this admission?: Yes (12) Severe obesity (BMI 35.0-35.9 with comorbidity) Is this a current diagnosis for this admission?: Yes - Additional Information Resuscitation Status: Full Code Discharge Diet: Cardiac, Diabetic Discharge Activity: Balance Activity w/Rest, No Driving, Keep Legs Elevated, No Lifting Over 10 Pounds, No Lifting/Push/Pulling, Walk Frequently, Weigh Daily Home Medications: Folic Acid/Multivit-Minerals [One Daily Womens 50 Plus Tab] 1 tab PO DAILY 11/30 Insulin Aspart [Novolog Flexpen] 0 unit SUBCUT .SLD SCALE 12/05/16 Insulin Glargine,Hum.rec.anlog [Lantus] 25 unit SQ DAILY 12/05/16 Amox Tr/Potassium Clavulanate [Augmentin 875-125 mg Tablet] 1 tab PO BID #6 tablet 12/10/16 Fluconazole [Diflucan] 150 mg PO ONCE PRN #1 tablet 12/10/16 Furosemide [Lasix 20 mg Tablet] 20 mg PO QAM #3 tablet 12/10/16 History of Present Illness History of Present Illness: TERRANCE KLEIN is a 61 year old female female with underlying type 1 diabetes mellitus, with long-term noncompliance with medications and physician follow-up, arthritis, along with personal history of DVT and pulmonary embolus before the year 1999, who presents to the emergency room for evaluation of above complaints. Patient has been discussed with emergency room physician who evaluated the patient. Patient was hospitalized on our service the through the of this month with discharge diagnoses including small bowel obstruction, acute kidney injury , diabetes mellitus, urinary tract infection and hypokalemia. Patient was quite insistent upon being discharged home, but did agree to come back the following day for repeat x-rays and labs. She did present for follow-up testing with Dr. Fernandez, daytime hospitalist contacting her tell her to come back to the emergency room due to the abnormal findings on both blood work and x-rays. She has had intermittent mild to moderate sharp cramping abdominal pain, most noticeable in the right upper quadrant. A bit worse with certain movements. Nausea and and a number of episodes of nonbloody emesis. Last flatus approximately 10:30 PM the evening of the . Small mucous bowel movement during that time span. No fever or chills. Workup is consistent with small bowel obstruction, probable bibasilar pneumonia , with patient stating she has had a recent cough, abnormal CT scan of the left kidney, uncontrolled diabetes mellitus with metabolic acidosis, with repeat labs pending. Nasogastric tube is in place draining small amount of dark bile-stained fluid. Patient does state she is having less abdominal discomfort since placement of the nasogastric tube. Hospital Course Hospital Course: Patient was found on presentation to have severe sepsis with subsequent septic shock. Patient had a worsening of her overall bowel obstruction and went to the OR on 12/05/2016 for resection of gangrenous small bowel resection of the cecum. Patient was also found on presentation to have bilateral bibasilar pneumonia which is felt to be secondary to aspiration due to her copious vomiting. Additionally, patient had signs and symptoms of UTI on presentation, but culture obtained after several days of IV antibiotics was negative. Patient was treated with Zosyn for 5 days of therapy and transitioned to Augmentin for completion of her course for aspiration pneumonia. Patient quickly regained her function and was able to eat and drink as well as have bowel movements prior to discharge. Patient was requiring no pain medication on discharge. It was discovered during the course of her stay, the patient had an albumin of 1.8, and patient reported weight loss over the past year of an intentional nature due to changing her diet. Dietary was consulted for this patient and she was given several doses of Lasix prior to discharge for her peripheral edema due to volume resuscitation. Patient's overall course was otherwise unremarkable. Patient was discharged in stable condition. Physical Exam Vital Signs: Temp Pulse Resp BP Pulse Ox 97.6 F 106 H 16 127/74 H 100 12/10/16 10:14 12/10/16 10:14 12/10/16 10:14 12/10/16 10:14 12/10/16 10:14 Intake & Output 12/09/16 12/10/16 12/11/16 06:59 06:59 06:59 Intake Total 1916 460 360 Output Total 1 180 Balance 1915 280 360 Exam: GENERAL: No acute distress HEENT: Conjunctiva clear, nonicteric, moist mucous membranes, no JVD, midline trachea. RESPIRATORY: Clear to auscultation bilaterally, no wheezes, no rhonchi CARDIAC: Regular rate and rhythm, no murmurs/gallops/rubs ABDOMEN: Soft, nondistended, nttp, positive bowel sounds, no rebound, no guarding EXTREMETIES: No cyanosis, clubbing; 2+ edema NEUROLOGIC: Alert, oriented to person/place/time, CN's grossly intact, no focal deficits SKIN: Midline abdominal incision with no sign of infection PSYCH: Normal mood, normal affect Results Laboratory Results: 12/09/16 06:00 12/09/16 06:00 12/05/16 17:55 Blood Blood Culture - Final NO GROWTH IN 5 DAYS 12/05/16 17:50 Blood Blood Culture - Final NO GROWTH IN 5 DAYS Impressions: Abdomen/Pelvis CT 12/05/16 01:31 IMPRESSION: 1. Small bowel obstruction pattern. Small ascites. 2. Small bilateral lower lobar pneumonia/atelectasis, left more than right. 3. Indeterminate complex 2.6 cm cystic mass of the left kidney ; recommend dynamic contrast CT (or MRI) of the kidneys. KUB X-Ray 12/05/16 08:08 IMPRESSION: Nasogastric tube tip in the stomach. Chest X-Ray 12/07/16 06:00 IMPRESSION: No significant interval change includes bibasilar streakiness. Lines and tubes. Qualifiers PATEINT BEING DISCHARGED WITH ANY OF THE FOLLOWING DIAGNOSIS?: No Plan Time Spent: Less than 30 Minutes
== END 2016-12-10 11:23 | disposition home or self-care (01) | DRG 853 ==
LOC: ER 23:46 → EH 12-05 06:47 → UNDOADMIN 12-05 06:47 → EH 12-05 07:45 → 3N 12-05 09:03 → ICU 12-05 16:32 → 2N 12-08 17:44
PROVIDERS: ADMIT Family Medicine; ATTEND Family Medicine
PROC: 0D1K0Z4 Bypass Ascending Colon to Cutaneous, Open Approach (ICD-10-PCS; 2016-12-05)
PROC: 02HV33Z Insertion of Infusion Device into Superior Vena Cava, Percutaneous Approach (ICD-10-PCS; 2016-12-05)
PROC: B548ZZA Ultrasonography of Superior Vena Cava, Guidance (ICD-10-PCS; 2016-12-05)
PROC: 0DB80ZZ Excision of Small Intestine, Open Approach (ICD-10-PCS; principal; 2016-12-05 09:45)
PROC: 0DBH0ZZ Excision of Cecum, Open Approach (ICD-10-PCS; 2016-12-05 09:45)
DX: A41.9 Sepsis, unspecified organism (principal); R65.21 Severe sepsis with septic shock; K65.9 Peritonitis, unspecified; J15.9 Unspecified bacterial pneumonia; E10.10 Type 1 diabetes mellitus with ketoacidosis without coma; K46.0 Unspecified abdominal hernia with obstruction, without gangrene; N30.00 Acute cystitis without hematuria; E44.0 Moderate protein-calorie malnutrition; E86.0 Dehydration; E83.42 Hypomagnesemia; E87.6 Hypokalemia; Z68.34 Body mass index [BMI] 34.0-34.9, adult; E66.9 Obesity, unspecified; Z91.14 Patient's other noncompliance with medication regimen; Z86.718 Personal history of other venous thrombosis and embolism; Z86.711 Personal history of pulmonary embolism
CPT/HCPCS: 36415; 71010; 74000; 74177; 790; 80048; 80053; 81001; 82962; 83605; 83690; 83735; 84132; 84484; 85025; 85027; 87040; 87086; 87493; 88307; 94799; 96361; 96365; 96366; 96375; 99291; C1751; J0131; J0330; J0692; J1170; J1642; J1650; J1741; J1815; J1956; J2060; J2250; J2370; J2405; J2543; J2704; J2765; J3010; J3475; J3480; J3490; J7030; J7060; S0028

== ENCOUNTER → 2016-12-04 | Outpatient (CLI) | payer OTHER ==
[~2016-12-04] MED LIST: CLINDAMYCIN PHOSPHATE INJ 300 MG/2 ML SDV ONE; METRONIDAZOLE 500 MG/NS RTU 100 ML IV ONE
--- NOTE | 2016-12-04 09:11 | RADIOLOGY REPORT (SQ) ---
EXAM DESCRIPTION: KUB/ABDOMEN (SINGLE VIEW) COMPLETED DATE/TIME: 12/04/2016 8:39 am REASON FOR STUDY: SMALL BOWEL OBSTRUCTION K56.69 OTHER INTESTINAL OBSTRUCTION COMPARISON: CT abdomen pelvis 11/30/2016 Abdominal films 12/01/2016, 12/03/2016 NUMBER OF VIEWS: One view. TECHNIQUE: Supine radiographic image of the abdomen acquired. LIMITATIONS: None. FINDINGS: BOWEL GAS PATTERN: Persistent air-filled mildly dilated small bowel loops out of proportio n to colon and stomach. Question ileus versus partial distal small bowel obstruction. CALCIFICATIONS: No suspicious calcifications. SOFT TISSUES: No gross mass or suggestion of organomegaly. HARDWARE: Clips right upper quadrant post cholecystectomy BONES: Degenerative changes at L4-5. OTHER: No other significant finding. IMPRESSION: Persistent dilated small bowel loops, unchanged from prior studies. Question distal par tial small bowel obstruction TECHNICAL DOCUMENTATION: JOB ID: [id number] [employer]- All Rights Reserved
[2016-12-04 09:36] LABS: HEMATOCRIT 39.1 % (36.0-47.0); HEMOGLOBIN 12.6 g/dL (12.0-15.5); HGB HCT DIFFERENCE -1.3; MEAN CORPUSCULAR HEMOGLOBIN 28.5 pg (27.0-33.4); MEAN CORPUSCULAR HGB CONC 32.1 g/dL (32.0-36.0); MEAN CORPUSCULAR VOLUME 89 fl (80-97); RED BLOOD COUNT 4.41 10^6/uL (3.72-5.28); RED CELL DISTRIBUTION WIDTH 13.1 % (11.5-14.0); WHITE BLOOD COUNT 24.6 10^3/uL (4.0-10.5)
[2016-12-04 09:43] LABS: BLOOD UREA NITROGEN 11 mg/dL (7-20); CALCIUM 8.8 mg/dL (8.4-10.2); CARBON DIOXIDE 17 mmol/L (22-30); CREATININE RESULT 0.87 mg/dL (0.52-1.25); GLUCOSE 218 mg/dL (75-110); POTASSIUM 3.3 mmol/L (3.6-5.0)
[2016-12-04 09:55] LABS: CHLORIDE 95 mmol/L (98-107); SODIUM 135.7 mmol/L (137-145)
[2016-12-04 09:56] LABS: ANION GAP 24 (5-19)
--- NOTE | 2016-12-04 18:49 | Progress Note ---
Provider Note Provider Note: Patient's follow-up KUB still shows evidence of distal bowel obstruction. CBC shows worsening leukocytosis. Chemistry panel shows patient is developing an acidosis. Concern is for incarcerated bowel. I have attempted to call patient on multiple occasions today and left a voicemail for her to return to the emergency department immediately or to call me back at my personal number. I have also attempted to call her son Buzz on multiple occasions with no answer.
== END ==
LOC: RAD 08:18
PROVIDERS: ATTEND Thoracic Surgery (Cardiothoracic Vascular Surgery)
DX: K56.69 Other intestinal obstruction (principal)
CPT/HCPCS: 36415; 74000; 80048; 85027

== ENCOUNTER → 2018-10-05 | Outpatient (CLI) | payer OTHER | LOC: OD 16:22 | PROVIDERS: ATTEND Nurse Practitioner Acute Care | DX: N39.0 Urinary tract infection, site not specified (principal) | CPT/HCPCS: 87086; 87088; 87186 ==

== ENCOUNTER 2019-03-01 07:54 | Day surgery (SDC) | payer OTHER ==
[~2019-03-01 07:54] MED LIST changes: +CHONDR SU A NA/HYALUR INTRAOC KIT (SURGICARE) ONE; -CLINDAMYCIN PHOSPHATE INJ 300 MG/2 ML SDV ONE; +EPINEPHRINE INJ/PF 1 MG/1 ML AMPULE ONE; +KETOROLAC TROMETHAMINE 0.45% 4 DROP/0.4 ML DROPERETTE OS PRN; +LIDOCAINE 1%/PHENYLEPHRINE 1.5% 1 ML VIAL ONE; -METRONIDAZOLE 500 MG/NS RTU 100 ML IV ONE
[2019-03-01] MEDS: TROPICAMIDE 1% OPH SOLN 3 ML OS PRN ×3 (08:15→08:35)
[2019-03-01] MEDS: BESIFLOXACIN HCL 0.6% OPH SUSP 5 ML BOTTLE OS PRN ×4 (08:15→09:15)
[2019-03-01] MEDS: TETRACAINE HCL 0.5% OPH SOLN 4 ML OS PRN ×3 (08:15→08:54)
[2019-03-01] MEDS: CYCLOPENTOLATE 0.2%/PHENYLEPHRINE 1% OPH SOLN 2 ML OS PRN ×3 (08:15→08:35)
[2019-03-01] MEDS ORDERED: MIDAZOLAM 2 MG/2 ML INJ ONE (08:33)
[2019-03-01] MEDS: DORZOLAMIDE HCL 2%/TIMOLOL MALEAT 0.5% OPH SOLN 10 ML OS PRN ×2 (09:15)
--- NOTE | 2019-03-02 07:37 | Operative Report ---
Operative Report-[facility] Operative Report: DATE OF SURGERY: 03/01/2019 PREOPERATIVE DIAGNOSIS: Cataracts, left eye POSTOPERATIVE DIAGNOSIS: Cataract, left eye OPERATION: Cataract extraction with insertion of an IOL of the left eye. Intraocular Lens Model: [24.5 sn60wf] Reason for cataract surgery was difficulty seeing the television and road signs SURGEON: Carson Vasquez MD ANESTHESIA: Topical PROCEDURE: After obtaining appropriate consent, the patient's left eye was prepped and draped in a sterile fashion as well as the surgeon in the sterile manner and cataract surgery was started. First a paracentesis blade was used to make a side-port incision. Viscoelastic was used to inflate the anterior chamber. Next a 2.4 mm incision was made with a 2.4 mm blade, clear corneal temporarily. A continuous capsulorrhexis was made using a cystotome and Utrata forceps. Following this hydrodissection was carried out to make commands fully loose and mobile and it was rotated 90 degrees. Following this, a divide and conquer technique was used to phacoemulsify the lens. The remaining cortex was removed with an irrigation/aspiration. Provisc was instilled into the capsular bag to inflate the bag.The intracular lens was placed. The remaining viscoelastic material was removed with irrigation/aspiration. Following this, the incision was found to be watertight. Besivance and Cosopt was instilled into the eye and a protective shield was placed over the eye. The patient was turned to the postoperative recovery in a stable condition.
== END 2019-03-01 09:55 | disposition home or self-care (01) ==
LOC: SC 07:54
PROVIDERS: ATTEND Internal Medicine
DX: H25.812 Combined forms of age-related cataract, left eye (principal); I10 Essential (primary) hypertension; E11.9 Type 2 diabetes mellitus without complications; Z79.899 Other long term (current) drug therapy; Z79.84 Long term (current) use of oral hypoglycemic drugs; Z79.4 Long term (current) use of insulin
CPT/HCPCS: 82962; 66984; V2632; J2250; J3490 ×2; J0171; J2370; 142

== ENCOUNTER 2019-03-26 07:24 | Day surgery (SDC) | payer OTHER ==
[~2019-03-26 07:24] MED LIST changes: -CHONDR SU A NA/HYALUR INTRAOC KIT (SURGICARE) ONE; +DORZOLAMIDE HCL 2%/TIMOLOL MALEAT 0.5% OPH SOLN 10 ML OD PRN; -EPINEPHRINE INJ/PF 1 MG/1 ML AMPULE ONE; +FENTANYL CITRATE INJ/PF 100 MCG/2 ML AMPUL ONE; -KETOROLAC TROMETHAMINE 0.45% 4 DROP/0.4 ML DROPERETTE OS PRN; -LIDOCAINE 1%/PHENYLEPHRINE 1.5% 1 ML VIAL ONE; +MIDAZOLAM 2 MG/2 ML INJ ONE
[2019-03-26] MEDS ORDERED: CHONDR SU A NA/HYALUR INTRAOC KIT (SURGICARE) ONE (07:26)
[2019-03-26] MEDS ORDERED: LIDOCAINE 1%/PHENYLEPHRINE 1.5% 1 ML VIAL ONE (07:26)
[2019-03-26] MEDS ORDERED: EPINEPHRINE INJ/PF 1 MG/1 ML AMPULE ONE (07:26)
[2019-03-26] MEDS: TETRACAINE HCL 0.5% OPH SOLN 4 ML OD PRN ×4 (07:57→08:28)
[2019-03-26] MEDS: BESIFLOXACIN HCL 0.6% OPH SUSP 5 ML BOTTLE OD PRN ×4 (07:57→08:46)
[2019-03-26] MEDS: TROPICAMIDE 1% OPH SOLN 15 ML OD PRN ×4 (07:57→08:22)
[2019-03-26] MEDS: CYCLOPENTOLATE 0.2%/PHENYLEPHRINE 1% OPH SOLN 2 ML OD PRN ×4 (07:57→08:22)
[2019-03-26] MEDS: KETOROLAC TROMETHAMINE 0.45% 4 DROP/0.4 ML DROPERETTE OD PRN ×2 (07:57→08:22)
--- NOTE | 2019-03-26 12:28 | Operative Report ---
Operative Report-[facility] Operative Report: DATE OF SURGERY: 03/26/2019 PREOPERATIVE DIAGNOSIS: Cataract, right eye POSTOPERATIVE DIAGNOSIS: Cataract, right eye OPERATION: Cataract extraction with insertion of an IOL of the right eye. Intraocular Lens Model: [25.5 sn60wf] reason for surgery was difficulty seeing road signs SURGEON: Carson Vasquez MD ANESTHESIA: Topical PROCEDURE: After obtaining appropriate consent, the patient's right eye was prepped and draped in a sterile fashion as well as the surgeon in the sterile manner and cataract surgery was started. First a paracentesis blade was used to make a side-port incision. Viscoelastic was used to inflate the anterior chamber. Next a 2.4 mm incision was made with a 2.4 mm blade, clear corneal temporarily. A continuous capsulorrhexis was made using a cystotome and Utrata forceps. Following this hydrodissection was carried out to make the hima fully loose and mobile and it was rotated. Following this, a divide and conquer technique was used to phacoemulsify the hima. The remaining cortex was removed with an irrigation/aspiration. Provisc was instilled into the capsular bag to inflate the bag. The intraocular lens was placed. The remaining viscoelastic material was removed with irrigation/aspiration. Following this, the incision was found to be watertight. Besivance and Cosopt was instilled into the eye and a protective shield was placed over the eye. The patient was reurned to the postoperative recovery in a stable condition.
== END 2019-03-26 09:20 | disposition home or self-care (01) ==
LOC: SC 07:24
PROVIDERS: ATTEND Internal Medicine
DX: H25.811 Combined forms of age-related cataract, right eye (principal); Z96.1 Presence of intraocular lens; I10 Essential (primary) hypertension; E11.9 Type 2 diabetes mellitus without complications; E66.9 Obesity, unspecified; Z79.4 Long term (current) use of insulin; Z79.899 Other long term (current) drug therapy
CPT/HCPCS: 66984; 82962; V2632; J2250; J3490 ×2; J0171; J2370; J3010